=== PATIENT | male | born 1975 | race Caucasian/White ===

== ENCOUNTER 2018-05-17 05:45 | Day surgery (SDC) | payer OTHER ==
[2018-05-12 11:08] LABS: Protime INR 1.03
--- NOTE | 2018-05-12 13:43 | EKG ---
Test Date: 2018-05-12 Test Time: 09:37:43 Lokie Engineer: VALARIE MEASUREMENT RESULTS: Intervals: Rate: 59 WI: 150 QRSD: 100 QT: 412 QTc: 407 [place]: P: 42 WI: 150 QRS: 54 T: 47 INTERPRETIVE STATEMENTS: Sinus bradycardia Otherwise normal ECG No previous ECG available for comparison Electronically Signed On 05-12-18 13:42:32 CDT by Russ White
[2018-05-17] MEDS ORDERED: CEFAZOLIN/SWI 2gm 2 GM/20 ML SYR IV SCH (06:00)
--- OUTSIDE RECORDS SUMMARY | 2018-05-17 06:46 | XMS REPORT ---
:1975 Author Organization eClinicalWorks Care Team Providers Name Role Phone Khoa Sellers Provider Role Unavailable Allergies No Known Allergies Problems Problem Type Condition Code Onset Dates Condition Status Problem Incomplete tear of right rotator M75.111 Active cuff Medications Medication Code System Code Instructions Start End Date Status Dosage Date [facility] 89999981295 7.5-325 MG Orally May 12, Active 1 tablet every 6 hrs 2018 as needed Results No Known Results Summary Purpose eClinicalWorks Submission
--- OUTSIDE RECORDS SUMMARY | 2018-05-17 06:46 | XMS REPORT ---
:1975 Author Organization eClinicalWorks Care Team Providers Name Role Phone Khoa Sellers Provider Role Unavailable Allergies No Known Allergies Problems Problem Type Condition Code Onset Dates Condition Status Problem Incomplete tear of right rotator M75.111 Active cuff Medications No Known Medications Results No Known Results Summary Purpose eClinicalWorks Submission
--- OUTSIDE RECORDS SUMMARY | 2018-05-17 06:46 | XMS REPORT ---
:1975 Author Organization eClinicalWorks Care Team Providers Name Role Phone Sellers Khoa Provider Role Unavailable Allergies, Adverse Reactions, Alerts Substance Reaction Event Type N.K.D.A. Info Not Available Non Drug Allergy Problems Problem Type Condition Code Onset Dates Condition Status Assessment Acute pain of right shoulder M25.511 Active Problem Incomplete tear of right rotator M75.111 Active cuff Assessment Bicipital tendinitis of right M75.21 Active shoulder Assessment Superior glenoid labrum lesion of S43.431A Active right shoulder, initial encounter Assessment Impingement syndrome of right M75.41 Active shoulder Assessment Incomplete tear of right rotator M75.111 Active cuff Medications Medication Code Code Instructions Start End Status Dosage System Date Date Ibuprofen [facility] 39484943698 800 MG Oral Active not defined Vitamin D [facility] [id number] 90099 UNIT Active not (Ergocalciferol) Oral defined Hydrochlorothiazide [facility] 13326661625 12.5 MG Oral Active not defined Losartan Potassium [facility] 62291240087 100 MG Oral Active not defined Results No Known Results Summary Purpose eClinicalWorks Submission
[2018-05-17] MEDS ORDERED: Ringers Lactate 1,000 ML IV ONE ×2 (06:51→08:36)
[2018-05-17] MEDS ORDERED: MIDAZOLAM HCL 2 MG/2 ML INJ ONE ×2 (07:05→07:09)
[2018-05-17] MEDS ORDERED: PROPOFOL 200 MG/20 ML VIAL IV ONE (07:05)
[2018-05-17] MEDS ORDERED: FENTANYL CITR 250 MCG/5 ML ONE ×2 (07:06→07:09)
[2018-05-17] MEDS ORDERED: ROCURONIUM 50 MG/5 ML VIAL IV ONE (07:06)
[2018-05-17] MEDS ORDERED: LIDOCAINE 1% MPF 5 ML VIAL ONE (07:06)
[2018-05-17] MEDS ORDERED: DEXAMETHASONE 4 MG/ML VIAL ONE (07:09)
[2018-05-17] MEDS ORDERED: ROPLVACAINE HCL 20 ML ONE (07:10)
[2018-05-17] MEDS ORDERED: EPINEPHRINE/PF 1 MG/ML AMP ONE (07:22)
[2018-05-17] MEDS ORDERED: EPHEDRINE SULF 50 MG/10 ML SYR ONE (08:04)
[2018-05-17] MEDS ORDERED: KETOROLAC 30 MG/ML INJ ONE (09:03)
--- NOTE | 2018-05-17 09:31 | P.BOP ---
Preoperative diagnosis: right shoulder rotator cuff tear, bicipital tenosynovitis Postoperative diagnosis: right shoulder rotator cuff tear, SLAP tear Primary procedure: right shoulder arthroscopic rotator cuff repair Secondary procedure: right shoulder SLAP debridement Multiple Needle Stitcher: NONE,NONE Estimated blood loss: <10 cc Specimen: none Findings: see dictation Anesthesia: General Complications: None Implants: Fiber tape, 4.75 x 19 mm Swivelock Fluids & blood products: per anesthesia Transferred to: Recovery Room Condition: Good
[2018-05-17] MEDS ORDERED: HYDROCODONE/APAP 7.5/325 MG TAB ONE (10:28)
--- NOTE | 2018-05-17 10:28 | RAD REPORT ---
EXAM DESCRIPTION: RAD - Shoulder 1 View - 05/17/2018 9:41 am CLINICAL HISTORY: Right shoulder surgery FINDINGS: Frontal view of the right shoulder was obtained. No fracture or dislocation is seen. No si gnificant abnormality is displayed
--- NOTE | 2018-05-17 22:03 | OP ---
Date of Procedure: 05/17/2018 Surgeon: Khoa Sellers MD Preoperative Diagnoses: 1. Right shoulder rotator cuff tear. 2. Right shoulder bicipital tenosynovitis. Postoperative Diagnoses: 1. Right shoulder rotator cuff tear. 2. Right shoulder type 1 superior labrum anterior and posterior tear. Procedures Performed: 1. Right shoulder arthroscopic rotator cuff repair. 2. Right shoulder arthroscopic superior labrum anterior and posterior tear debridement. Anesthesia: General endotracheal. Fluids: Per Anesthesia record. Estimated Blood Loss: Less than 10 cc. Complications: None. Specimens: None. Implants: A FiberTape and 4.75 x 19 mm Arthrex SwiveLock. Indication For Procedure: Jerome is a 42-year-old male who presented to my clinic with right shoulder pain. The patient failed conservative treatment including corticosteroid injection and physical therapy. The patient underwent an MRI of his right shoulder, which demonstrated a full-thickness tear of his anterior supraspinatus. I discussed with the patient at length risks and benefits associated with operative and nonoperative treatment. He expressed understanding and elected to proceed with operative treatment. Description Of Procedure: After informed consent was obtained, the patient was identified in the preoperative holding area. The right upper extremity was marked. The patient was taken to the PACU and underwent an interscalene block for his right shoulder performed by Anesthesia. He was then taken back to the operating room, transferred to the operating table in supine fashion, and placed under general endotracheal anesthesia. He was then placed in the beach chair position with his extremities well-padded. The right upper extremity was then examined. The patient had full range of motion of the shoulder and no instability noted. The right upper extremity was then prepped and draped in usual sterile fashion. A time-out was initiated. Correct patient and procedure were confirmed and identified. The patient did receive his preoperative prophylactic antibiotics. He had a posterior portal position, and spinal needle was introduced, and the shoulder was injected with 30 cc of saline inside the capsule. A posterior portal was created and arthroscope was introduced to the posterior portal position. A diagnostic arthroscopy was performed. The patient was noted to have some fraying of the superior labrum consistent with a type 1 SLAP tear. There was no instability of the superior labrum and no significant inflammation or fraying of the biceps tendon anchor and at that point an anterior portal was created and the superior labrum was probed again to confirm it was in fact stable. SLAP tear was then debrided using an arthroscopic shaver. The subscapularis was found to be intact. The anterior and posterior labrum were also found to be intact. No loose bodies within the axillary pouch. There was mild chondromalacia of the glenoid surface but overall pristine cartilage of the humeral head. Supraspinatus was then evaluated. There was inflammation and a small tear noted in the inferior aspect of supraspinatus and the articular surface. The arthroscope was then brought into the subacromial space. Subacromial bursectomy was then performed, after a lateral portal was created. The supraspinatus was then evaluated from its bursal side and a full-thickness tear was noted inferiorly. The obturator was brought in the lateral portal to elevate the supraspinatus off the greater tuberosity. There was some hyperemia within the tendon insertion anteriorly. The arthroscopic shaver was then used to debride any devitalized tissue and the greater tuberosity was debrided using an arthroscopic shaver, debrided to bleeding bony bed. An inverted suture was placed using a scorpion FastPass suture passer and a FiberTape attached to the rotator cuff tear. It was then reduced to the greater tuberosity with reduction of the rotator cuff tear. A single anchor was used for reduction of the tear after the greater tuberosity. Using a 4.75 mm SwiveLock, the remainder of the suture edges were cut with good reduction of the tear on the greater tuberosity. The instruments were then removed. The arthroscope was brought back into the glenohumeral joint and it was noted that there was good reduction of the rotator cuff tear. It is under the near articular side. The portals were approximated using a 3-0 Monocryl, subcutaneous tissue was approximated using 2-0 Vicryl. Sterile dressings were applied. The patient was awakened, placed in a shoulder immobilizer, transferred to PACU in stable condition. Postoperative Plan: He will be nonweightbearing of his right upper extremity. He will follow up next week for wound check. He will follow the small rotator cuff repair protocol to begin at 2 weeks postoperatively. GEMA/SARAH Voice ID: [id number] Report ID: [id number] RAFITA
== END 2018-05-17 11:05 | disposition home or self-care (01) ==
LOC: OR 05:45
PROVIDERS: ATTEND Orthopaedic Surgery Sports Medicine
PROC: 0RNJ4ZZ Release Right Shoulder Joint, Percutaneous Endoscopic Approach (ICD-10-PCS; 2018-05-17)
PROC: 0MM14ZZ Reattachment of Right Shoulder Bursa and Ligament, Percutaneous Endoscopic Approach (ICD-10-PCS; 2018-05-17)
PROC: 0RBJ4ZZ Excision of Right Shoulder Joint, Percutaneous Endoscopic Approach (ICD-10-PCS; 2018-05-17)
PROC: 0LQ14ZZ Repair Right Shoulder Tendon, Percutaneous Endoscopic Approach (ICD-10-PCS; principal; 2018-05-17 07:30)
DX: M75.101 Unspecified rotator cuff tear or rupture of right shoulder, not specified as traumatic (principal); M24.111 Other articular cartilage disorders, right shoulder
CPT/HCPCS: 36415; 73020; 85610; 85730; 93005; J0171; J0690; J2250; J2795

== ENCOUNTER 2021-04-25 09:08 | Emergency (ER) | payer SELFPAY ==
--- OUTSIDE RECORDS SUMMARY | 2021-04-25 09:11 | XMS REPORT | Continuity of Care Document ---
:1975 Author Organization [facility] t Address [address] [place] [address] Care Team Providers Name Role Phone Steve SANTOS Attending Clinician Problems Condition Condition Condition Status Onset Resolution Last Treating Co mments Source Name Details Category Date Date Treatment Clinician Date Incomplete Incomplete Problem Active [facility] - right right [facility] rotator rotator l cuff cuff Outpat[facility] ent Clinics Complete Complete Diagnosis Active [facility] - right right [facility] rotator rotator l cuff cuff Outpat[facility] ent [facility] Superior Superior Diagnosis Active [facility] glenoid glenoid [facility] - labrum labrum [facility] lesion of lesion of l right right Outpati shoulder, shoulder, ent initial initial Clinics encounter encounter Pain in Pain in Diagnosis Active [facility] - right right [facility] shoulder shoulder l Out[facility] ent Clinics Allergies, Adverse Reactions, Alerts This patient has no known allergies or adverse reactions. Medications Ordered Filled Start Stop Current Ordering Indication Dosage Frequency Signature Comments Components Source Medication Medication Date Date Medication? Clinician (SIG) Name Name Destiney Velizco 2018-0 Yes Khoa [address] [facility] 8-10 Sellers as needed [facility] Ibuprofen Ibuprofen Yes Khoa not [facility] Sellers defined [facility] Hydrochloro Hydrochloro Yes Khoa not [facility] thiazide thiazide [facility]ellers defined [facility] Vitamin D Vitamin D Yes Khoa not [facility] (Ergocalcif (Ergocalcif Sellers defined [facility] - [facility] j[facility] Losartan Losartan Yes Khoa not [facility] Potassium Potassium Sellers defined Kerry kes - [facility] Procedures This patient has no known procedures. Encounters Start End Encounter Admission Attending Care Care Encounter Source Date/Time Date/Time Type Type Clinicians Facility Department ID 2020-06-22 2020-06-22 Emergency Wilson, [facility] [id number] 15:41:00 20:30:00 Crystal Garcia [id number] [place] [id number] [place] [id number] 2018-07-06 2018-07-06 [facility] [id number] [facility] 08[facility]00 08:[facility] 2018-06-06 2018-06-06 [facility] [id number] [facility] 14:[facility]00 14:00[facility]00 [facility] 2018-05-22 2018-05-22 [facility] [id number] [facility] 09:45:00 09:45:00 [facility] 2018-05-12 2018-05-12 [facility] [id number] [facility] 09:16:00 09:16:00 [facility] 2018-05-09 2018-05-09 [facility] [id number] [facility] 13:21:00 13:21:00 t [facility] 2018-05-08 2018-05-08 [facility] [id number] [facility] 09[facility]30:00 09:30:00 [facility] Results This patient has no known results.
[2021-04-25 11:19] LABS: Absolute Lymphocytes (CBC) 1.3 K/uL (0.7-4.9); Basophils % 0.5 % (0-1.3); Hematocrit 46.4 % (39.6-49.0); Lymphocytes % 9.5 % (15.3-44.8); MPV 9.1 fL (7.6-11.3); RBC Red Blood Cell Count 4.87 M/uL (4.33-5.43)
[2021-04-25 11:29] LABS: Albumin 3.8 g/dL (3.4-5.0); Bilirubin Total 0.5 mg/dL (0.2-1.0); Potassium 3.9 mmol/L (3.5-5.1)
--- NOTE | 2021-04-25 12:04 | RAD REPORT ---
EXAM DESCRIPTION: CT - Abdomen Pelvis W Contrast - 04/25/2021 11:47 am CLINICAL HISTORY: Abdominal pain/flank pain COMPARISON: none. TECHNIQUE: Computed axial tomography of the abdomen pelvis was obtained. 100 cc Isovue-300 was admin istered intravenously. Oral contrast was not requested which limits evaluation of bowel. All CT scans are performed using dose optimization technique as appropriate and may include automated exposure control or mA/KV adjustment according to patient size. FINDINGS: A gastric band has been placed. Mild delay concentration contrast within the left kidney with perirenal stranding. Mild left hydronep hrosis. 4.5 millimeter calculus mid left ureter. The liver, spleen, pancreas, adrenal and right kidney appear unremarkable. There is no evidence of diverticulitis. Normal appendix. Small inguinal hernias contain fat IMPRESSION: 4.5 millimeter calculus mid left ureter resulting in mild left hydronephrosis
--- NOTE | 2021-04-25 12:09 | RAD REPORT ---
EXAM DESCRIPTION: US - Scrotum Testicles - 04/25/2021 11:40 am CLINICAL HISTORY: Testicular pain COMPARISON: None FINDINGS: Right testicle measures 4.1 x 2.3 x 3.7 centimeters. Echotexture is homogeneous. Normal bl ood flow Left testicle measures 5.2 x 2.5 x 3.5 centimeters. Echotexture is homogeneous. Normal blood flow. A 3 millimeter calcification either is within the periphery or abuts the left testicle. It likely is be nign The epididymides are normal in size and echotexture. Normal blood flow is seen. IMPRESSION: No significant abnormality is displayed
[2021-04-25 12:16] LABS: Urine Blood 3+ (Negative); Urine Glucose Negative (Negative); Urine Protein Negative (Negative); Urine Specific Gravity 1.015 (1.005-1.030)
[2021-04-25 12:18] LABS: Blood Morphology Comment NOT SEEN (NOT SEEN); Platelet Estimate ADEQ; White Blood Cell Scan OK (OK)
--- NOTE | 2021-04-25 12:33 | ER ---
Nurse's Notes [facility] Name: Jerome Lora Age: 45 yrs Sex: Male : 1975 Arrival Date: 04/25/2021 Time: 09:10 Bed 28 Private MD: Diagnosis: Hydronephrosis with renal and ureteral calculous obstruction-4.5 mm left mid Presentation: 04/25 09:54 Chief complaint: Patient states: two week ago had swollen left testicle, was seen by urologist and started abx for epididymitis, this morning and it swollen doubled in size. Coronavirus screen: At this time, the client does not indicate any symptoms associated with coronavirus-19. Ebola Screen: Patient negative for fever greater than or equal to 101.5 degrees Fahrenheit, and additional compatible Ebola Virus Disease symptoms Patient denies exposure to infectious person. Patient denies travel to an Ebola-affected area in the 21 days before illness onset. No symptoms or risks identified at this time. Initial Sepsis Screen: Does the patient meet any 2 criteria? No. Patient's initial sepsis screen is negative. Does the patient have a suspected source of infection? No. Patient's initial sepsis screen is negative. Risk Assessment: Do you want to hurt yourself or someone else? Patient reports no desire to harm self or others. Onset of symptoms was April 25, 2021. 09:54 Method Of Arrival: Ambulatory 09:54 Acuity: KIMBERLEY 2 Triage Assessment: 10:00 General: Appears distressed, uncomfortable, obese, Behavior is cooperative, appropriate bp for age, anxious. Pain: Complains of pain in left testicle. EENT: No deficits noted. Neuro: No deficits noted. Cardiovascular: No deficits noted. Respiratory: No deficits noted. GI: No signs and/or symptoms were reported involving the gastrointestinal system. : Swelling noted LEFT TESTICLE. Derm: No deficits noted. Musculoskeletal: No deficits noted. Historical: - Allergies: :56 No Known Allergies; iw - Home Meds: :56 losartan oral [Active]; atorvastatin oral [Active]; iw - PMHx: 09:56 Hypertensive disorder; hyperlipidemia; iw - PSHx: 09:56 shoulder; iw - Immunization history:: Client reports having NOT received the Covid vaccine. - Social history:: Smoking status: Patient reports the use of cigarette tobacco products. Screenin:00 Abuse screen: Denies threats or abuse. Denies injuries from another. Nutritional bp screening: No deficits noted. Tuberculosis screening: No symptoms or risk factors identified. Fall Risk None identified. Assessment: 10:00 Reassessment: LEFT TESTICLE PAIN. General: SEE TRIAGE NOTE. Neuro: Level of bp Consciousness is awake, alert, obeys commands, Oriented to Appropriate for age. Cardiovascular: No deficits noted. Respiratory: No deficits noted. GI: No deficits noted. : Reports pain testicle. EENT: No deficits noted. Derm: No deficits noted. Musculoskeletal: No deficits noted. 12:00 Reassessment: No changes from previously documented assessment. Patient and/or family bp updated on plan of care and expected duration. Pain level reassessed. Patient is alert, oriented x 3, equal unlabored respirations, skin warm/dry/pink. ALL CURRENT ORDERS CMPLETED. 12:51 Reassessment: PT D/C HOME AMBULATORY, DX WITH RENAL CALCULUS. bp Vital Signs: 09:54 BP 162 / 92; Pulse 74; Resp 16; Temp 98.6; Pulse Ox 100% on R/A; Weight 113.4 kg; iw Height 5 ft. 11 in. (180.34 cm); Pain 10/10; 12:00 BP 139 / 74; Pulse 60; Resp 17; Pulse Ox 98% ; bp 12:48 BP 129 / 86; Pulse 63; Resp 17; Pulse Ox 99% ; bp 09:54 Body Mass Index 34.87 (113.40 kg, 180.34 cm) iw ED Course: 09:10 Patient arrived in ED. cl3 09:56 Triage completed. iw 09:57 Arm band placed on. iw 10:04 Lambert Lagos MD is Attending Physician. carlos 10:16 Nj Nixon, RN is Primary Nurse. bp 11:00 Patient has correct armband on for positive identification. Bed in low position. Call bp light in reach. Side rails up X2. 11:00 US Scrotum Testicles Sent. bp 11:00 Inserted saline lock: 20 gauge in left antecubital area, using aseptic technique. Blood bp collected. 11:22 US Scrotum Testicles In Process Unspecified. EDMS 11:47 CT Abd/Pelvis - IV Contrast Only In Process Unspecified. EDMS 12:31 Corwin Calvert MD is Referral Physician. carlos 12:54 No provider procedures requiring assistance completed. IV discontinued, intact, iw bleeding controlled, No redness/swelling at site. Pressure dressing applied. Administered Medications: 11:00 Drug: NS 0.9% 1000 ml Route: IV; Rate: 1 bolus; Site: left antecubital; bp 11:00 Drug: Rocephin (cefTRIAXone) 1 grams Route: IV; Rate: per protocol; Site: left bp antecubital; 11:00 Drug: morphine 4 mg Route: IVP; Site: left antecubital; bp 12:27 Follow up: Response: Pain is decreased bp 11:00 Drug: Zofran (Ondansetron) 4 mg Route: IVP; Site: left antecubital; bp 12:26 Follow up: Response: Pain is decreased bp 12:49 Drug: Ketorolac 30 mg Route: IVP; Site: left antecubital; bp 12:50 Follow up: Response: No adverse reaction; Pain is decreased bp 12:50 Drug: Flomax (tamsulosin) 0.4 mg Route: PO; bp 12:50 Follow up: Response: Medication administered at discharge. bp Outcome: 12:32 Discharge ordered by . carlos 12:54 Discharged to home ambulatory. iw 12:54 Condition: good 12:54 Discharge instructions given to patient, Instructed on discharge instructions, follow up and referral plans. medication usage, Demonstrated understanding of instructions, follow-up care, medications, Prescriptions given X 4. 12:54 Patient left the ED. iw Signatures: Dispatcher [employer] EDME Lambert Lagos MD MD cha Williams, Irene, RN RN Nj Worrell RN RN bp Lewis, Charde cl3
--- NOTE | 2021-04-25 12:33 | EDPHYS ---
Physician Documentation [facility] Name: Jerome Lora Age: 45 yrs Sex: Male : 1975 Arrival Date: 04/25/2021 Time: 09:10 Bed 28 Private MD: ED Physician Lambert Lagos HPI: 04/25 11:28 This 45 yrs old Male presents to ER via Ambulatory with complaints of carlos Testicular Pain. 11:28 The patient presents with flank pain, of the left low back and left mid back, carlos tenderness, that is moderate, of the left testicle. Onset: The symptoms/episode began/occurred 14 day(s) ago. Modifying factors: The symptoms are alleviated by remaining still, the symptoms are aggravated by movement, pressure. Associated signs and symptoms: The patient has no apparent associated signs or symptoms. Severity of symptoms: At their worst the symptoms were moderate, in the emergency department the symptoms are unchanged. The patient has not experienced similar symptoms in the past. Historical: - Allergies: 09:56 No Known Allergies; iw - Home Meds: :56 losartan oral [Active]; atorvastatin oral [Active]; iw - PMHx: 09:56 Hypertensive disorder; hyperlipidemia; iw - PSHx: 09:56 shoulder; iw - Immunization history:: Client reports having NOT received the Covid vaccine. - Social history:: Smoking status: Patient reports the use of cigarette tobacco products. ROS: 11:29 Constitutional: Negative for fever, chills, and weight loss, Eyes: Negative for injury, carlos pain, redness, and discharge, ENT: Negative for injury, pain, and discharge, Neck: Negative for injury, pain, and swelling, Cardiovascular: Negative for chest pain, palpitations, and edema, Respiratory: Negative for shortness of breath, cough, wheezing, and pleuritic chest pain, Abdomen/GI: Negative for abdominal pain, nausea, vomiting, diarrhea, and constipation, Back: Negative for injury and pain, MS/Extremity: Negative for injury and deformity, Skin: Negative for injury, rash, and discoloration, Neuro: Negative for headache, weakness, numbness, tingling, and seizure, Psych: Negative for depression, anxiety, suicide ideation, homicidal ideation, and hallucinations, Allergy/Immunology: Negative for hives, rash, and allergies, Endocrine: Negative for neck swelling, polydipsia, polyuria, polyphagia, and marked weight changes, Hematologic/Lymphatic: Negative for swollen nodes, abnormal bleeding, and unusual bruising. 11:29 : Positive for testicular pain of the left testicle. Exam: 11:29 Constitutional: This is a well developed, well nourished patient who is awake, alert, carlos and in no acute distress. Head/Face: Normocephalic, atraumatic. Eyes: Pupils equal round and reactive to light, extra-ocular motions intact. Lids and lashes normal. Conjunctiva and sclera are non-icteric and not injected. Cornea within normal limits. Periorbital areas with no swelling, redness, or edema. ENT: Nares patent. No nasal discharge, no septal abnormalities noted. Tympanic membranes are normal and external auditory canals are clear. Oropharynx with no redness, swelling, or masses, exudates, or evidence of obstruction, uvula midline. Mucous membranes moist. Neck: Trachea midline, no thyromegaly or masses palpated, and no cervical lymphadenopathy. Supple, full range of motion without nuchal rigidity, or vertebral point tenderness. No Meningismus. Chest/axilla: Normal chest wall appearance and motion. Nontender with no deformity. No lesions are appreciated. Cardiovascular: Regular rate and rhythm with a normal S1 and S2. No gallops, murmurs, or rubs. Normal PMI, no JVD. No pulse deficits. Respiratory: Lungs have equal breath sounds bilaterally, clear to auscultation and percussion. No rales, rhonchi or wheezes noted. No increased work of breathing, no retractions or nasal flaring. Abdomen/GI: Soft, non-tender, with normal bowel sounds. No distension or tympany. No guarding or rebound. No evidence of tenderness throughout. Back: No spinal tenderness. No costovertebral tenderness. Full range of motion. Skin: Warm, dry with normal turgor. Normal color with no rashes, no lesions, and no evidence of cellulitis. MS/ Extremity: Pulses equal, no cyanosis. Neurovascular intact. Full, normal range of motion. Neuro: Awake and alert, GCS 15, oriented to person, place, time, and situation. Cranial nerves II-XII grossly intact. Motor strength 5/5 in all extremities. Sensory grossly intact. Cerebellar exam normal. Normal gait. Psych: Awake, alert, with orientation to person, place and time. Behavior, mood, and affect are within normal limits. 11:29 : CVA tenderness, on the left, Male external genitalia: normal, Bladder: is normal, Rectal exam: is not applicable, Sexual behavior: the patient is sexually active, and reports a single partner. Vital Signs: 09:54 BP 162 / 92; Pulse 74; Resp 16; Temp 98.6; Pulse Ox 100% on R/A; Weight 113.4 kg; iw Height 5 ft. 11 in. (180.34 cm); Pain 10/10; 12:00 BP 139 / 74; Pulse 60; Resp 17; Pulse Ox 98% ; bp 12:48 BP 129 / 86; Pulse 63; Resp 17; Pulse Ox 99% ; bp 09:54 Body Mass Index 34.87 (113.40 kg, 180.34 cm) iw MDM: 10:06 Patient medically screened. [facility] 11:30 Differential diagnosis: nephrolithiasis, pyelonephritis, UTI, nonspecific abdominal carlos pain, UTI, urinary retention, urethritis. Data reviewed: vital signs, nurses notes, lab test result(s), radiologic studies, CT scan, ultrasound. Data interpreted: bus driver/monitor: not applicable for this patient encounter. rate is 74 beats/min, rhythm is regular, Pulse oximetry: on room air is 100 %. Test interpretation: by ED physician or midlevel provider:. Counseling: I had a detailed discussion with the patient and/or guardian regarding: the historical points, exam findings, and any diagnostic results supporting the discharge/admit diagnosis, lab results, radiology results. 04/25 10:06 Order name: CBC with Diff; Complete Time: 12:30 [facility] 04/25 10:06 Order name: Comprehensive Metabolic Panel; Complete Time: 12:30 [facility] 04/25 10:06 Order name: US Scrotum Testicles; Complete Time: 12:30 [facility] 04/25 10:06 Order name: Urine Culture [facility] 04/25 12:16 Order name: Urine Dipstick-Ancillary; Complete Time: 12:30 [facility] 04/25 12:17 Order name: CBC Smear Scan; Complete Time: 12:30 [facility] 04/25 10:06 Order name: Urine Dipstick-Ancillary (obtain specimen); Complete Time: 12:27 [facility] 04/25 11:28 Order name: CT Abd/Pelvis - IV Contrast Only; Complete Time: 12:30 carlos Administered Medications: 11:00 Drug: NS 0.9% 1000 ml Route: IV; Rate: 1 bolus; Site: left antecubital; bp 11:00 Drug: Rocephin (cefTRIAXone) 1 grams Route: IV; Rate: per protocol; Site: left bp antecubital; 11:00 Drug: morphine 4 mg Route: IVP; Site: left antecubital; bp 12:27 Follow up: Response: Pain is decreased bp 11:00 Drug: Zofran (Ondansetron) 4 mg Route: IVP; Site: left antecubital; bp 12:26 Follow up: Response: Pain is decreased bp 12:49 Drug: Ketorolac 30 mg Route: IVP; Site: left antecubital; bp 12:50 Follow up: Response: No adverse reaction; Pain is decreased bp 12:50 Drug: Flomax (tamsulosin) 0.4 mg Route: PO; bp 12:50 Follow up: Response: Medication administered at discharge. bp Disposition Summary: 04/25/21 12:32 Discharge Ordered Location: Home carlos Problem: new carlos Symptoms: have improved carlos Condition: Stable carlos Diagnosis - Hydronephrosis with renal and ureteral calculous obstruction - 4.5 mm left mid carlos Followup: carlos - With: Private Physician - When: 2 - 3 days - Reason: Recheck today's complaints, Continuance of care, Re-evaluation by your physician Followup: carlos - With: Corwin Calvert MD - When: 2 - 3 days - Reason: Recheck today's complaints, Re-evaluation by your physician Discharge Instructions: - Discharge Summary Sheet carlos - Kidney Stones carlos - Kidney Stones, [id number] carlos - Hydronephrosis carlos - Dietary Guidelines to Help Prevent Kidney Stones carlos Forms: - Medication Reconciliation Form carlos - Thank You Letter carlos - Antibiotic Education carlos - Prescription Opioid Use carlos Prescriptions: - acetaminophen-codeine 300-15 mg Oral tablet - take 2 tablet by ORAL route every 4-6 hours; 25 tablet; Refills: 0, Product carlos Selection Permitted - Zofran 4 mg Oral Tablet - take 1 tablet by ORAL route every 12 hours As needed; 20 tablet; Refills: 0, carlos Product Selection Permitted - Cipro 500 mg Oral Tablet - take 1 tablet by ORAL route every 12 hours for 7 days; 14 tablet; Refills: 0, [facility] Product Selection Permitted - tamsulosin 0.4 mg Oral capsule - take 1 capsule by ORAL route once daily 1/2 hour following the same meal each [facility] day; 30 capsule; Refills: 0, Product Selection Permitted Signatures: Dispatcher [employer] Lambert Zepeda MD MD cha Williams, Irene, JOANN RN Nj Worrell RN RN bp
[2021-04-25 13:02] VITALS: TEMP 98.6
[2021-04-25 13:05] VITALS: BP 129/86; O2SAT 99
[2021-04-25] MEDS ORDERED: TAMSULOSIN 0.4 MG SR CAP ONE (13:07)
[2021-04-25] MEDS ORDERED: KETOROLAC 30 MG/ML INJ ONE (13:07)
== END 2021-04-25 12:54 | disposition home or self-care (01) ==
LOC: ER 09:08
DX: N13.2 Hydronephrosis with renal and ureteral calculous obstruction (principal); I10 Essential (primary) hypertension; E78.5 Hyperlipidemia, unspecified; F17.210 Nicotine dependence, cigarettes, uncomplicated
CPT/HCPCS: 36415; 74177; 76870; 80053; 81003; 85025; 87086; 87088; 96374; 96375; 99284; Q9967

== ENCOUNTER 2021-08-09 11:28 | Emergency (ER) | payer OTHER ==
[2021-08-09 12:21] LABS: Absolute Lymphocytes (CBC) 1.4 K/uL (0.7-4.9); Basophils % 0.5 % (0-1.3); Hematocrit 54.9 % (39.6-49.0); Lymphocytes % 12.8 % (15.3-44.8); MPV 8.5 fL (7.6-11.3); RBC Red Blood Cell Count 5.62 M/uL (4.33-5.43)
--- NOTE | 2021-08-09 12:31 | RAD REPORT ---
EXAM DESCRIPTION: CT - Head Brain Wo Cont - 08/09/2021 12:08 pm CLINICAL HISTORY: Dizziness COMPARISON: None TECHNIQUE: Computed axial tomography of the head was obtained. IV contrast was not requested. All CT scans are performed using dose optimization technique as appropriate and may include automated exposure control or mA/KV adjustment according to patient size. FINDINGS: An intracranial bleed is not seen . The ventricles are normal in caliber. No extra-axial fluid collection is noted. Fluid within the sinuses/ mastoids is not seen. IMPRESSION: No acute intracranial abnormality is seen. If patient's symptoms persist MRI of the bra in would be recommended.
[2021-08-09 12:40] LABS: ALT/SGPT 38 U/L (12-78); AST/SGOT 25 U/L (15-37); Albumin 3.5 g/dL (3.4-5.0); Alkaline Phosphatase 74 U/L (45-117); BUN Blood Urea Nitrogen 4 mg/dL (7-18); Bicarbonate 25 mmol/L (21-32); Bilirubin Direct 0.3 mg/dL (0-0.2); Glucose Level 103 mg/dL (74-106); Magnesium 1.8 mg/dL (1.8-2.4); NT PRO-BNP 34 pg/mL (<125); Potassium 3.8 mmol/L (3.5-5.1); Protein, Total 7.1 g/dL (6.4-8.2); Sodium Level 139 mmol/L (136-145); Troponin (Emerg Dept Use Only) < 0.02 ng/mL (0.0-0.045)
--- NOTE | 2021-08-09 13:03 | RAD REPORT ---
EXAM DESCRIPTION: Arti Single View08/09/2021 12:34 pm CLINICAL HISTORY: Chest pain COMPARISON: 2011 FINDINGS: The lungs appear clear of acute infiltrate. The heart is normal size IMPRESSION: No acute abnormalities displayed
--- NOTE | 2021-08-09 16:12 | ER ---
Nurse's Notes [facility] Name: Jerome Lora Age: 46 yrs Sex: Male : 1975 Arrival Date: 08/09/2021 Time: 11:32 Bed 16 Private MD: Diagnosis: Chest pain, unspecified;Dizziness and giddiness Presentation: 08/09 11:37 Chief complaint: Patient states: i got up this morning and i was super dizzy and my tw2 LEFT arm has been tingling. i checked my bp at home and it was like 168/102. i had a mild stroke last September. i do take losartan 100 mg and i have been taking it. Coronavirus screen: At this time, the client does not indicate any symptoms associated with coronavirus-19. Ebola Screen: Patient denies travel to an Ebola-affected area in the 21 days before illness onset. Initial Sepsis Screen: Does the patient meet any 2 criteria? No. Patient's initial sepsis screen is negative. Does the patient have a suspected source of infection? No. Patient's initial sepsis screen is negative. Risk Assessment: Do you want to hurt yourself or someone else? Patient reports no desire to harm self or others. Onset of symptoms was August 09, 2021. 11:37 Method Of Arrival: Ambulatory tw2 11:37 Acuity: KIMBERLEY 3 tw2 Triage Assessment: 11:39 General: Appears in no apparent distress. well groomed, Behavior is calm, cooperative, tw2 appropriate for age. Pain: Denies pain. Neuro: Level of Consciousness is awake, alert, obeys commands, Oriented to person, place, time, situation, Reports dizziness, headache "heaviness in my LEFT arm when i woke up this morning". 11:45 General: Appears in no apparent distress. well groomed, well developed, Behavior is sl2 calm, cooperative, appropriate for age, Reports Left arm tingling. 11:45 EENT: No deficits noted. No signs and/or symptoms were reported regarding the EENT sl2 system. Cardiovascular: No deficits noted. Respiratory: No deficits noted. Reports. GI: No deficits noted. No signs and/or symptoms were reported involving the gastrointestinal system. : No deficits noted. No signs and/or symptoms were reported regarding the genitourinary system. Derm: No deficits noted. No signs and/or symptoms reported regarding the dermatologic system. Musculoskeletal: No deficits noted. No signs and/or symptoms reported regarding the musculoskeletal system. Historical: - Allergies: 11:39 No Known Allergies; tw2 - Home Meds: 11:39 losartan 100 mg oral tab 1 tab once daily [Active]; atorvastatin Oral 1 tab once daily tw2 [Active]; - PMHx: 11:39 Hyperlipidemia; Hypertensive disorder; CVA; tw2 - PSHx: 11:39 Shoulder; tw2 - Immunization history:: Client reports having NOT received the Covid vaccine. - Social history:: Smoking status: Patient reports the use of cigarette tobacco products, denies chronic smoking, but will smoke occasionally, Patient uses alcohol, occasionally. Screenin:44 Abuse screen: Denies threats or abuse. Nutritional screening: No deficits noted. tw2 Tuberculosis screening: No symptoms or risk factors identified. Fall Risk None identified. Assessment: 11:46 Reassessment: Patient AAO X 3, presents to ED with c/o dizziness and left arm tingling sl2 onset this am, denies chest pain or other untoward symptoms. 11:46 General: Appears in no apparent distress. well groomed, well developed, Behavior is sl2 calm, cooperative, appropriate for age, Reports Dizziness and left arm tingling Denies fever, fatigue. Pain: Denies pain. Neuro: Reports dizziness, Left arm tingling . Denies weakness blurred vision difficulty swallowing, numbness headache photophobia diplopia. Cardiovascular: No deficits noted. Capillary refill Rhythm is sinus rhythm. Respiratory: No deficits noted. Airway is patent Trachea midline Respiratory effort is even, unlabored, Respiratory pattern is regular, symmetrical. GI: No deficits noted. No signs and/or symptoms were reported involving the gastrointestinal system. : No deficits noted. No signs and/or symptoms were reported regarding the genitourinary system. EENT: No deficits noted. No signs and/or symptoms were reported regarding the EENT system. Derm: No deficits noted. No signs and/or symptoms reported regarding the dermatologic system. Musculoskeletal: No deficits noted. No signs and/or symptoms reported regarding the musculoskeletal system. 12:04 Reassessment: Patient transported to radiology dept for CAT scan. sl2 12:10 Reassessment: CAT scan completed - patient has been returned to the unit. sl2 12:28 Reassessment: Portable CXR completed. sl2 Vital Signs: 11:37 BP 139 / 99; Pulse 86; Resp 17; Temp 98.2(TE); Pulse Ox 100% on R/A; Weight 111.13 kg tw2 (R); Height 5 ft. 11 in. (180.34 cm); Pain 0/10; 11:46 BP 138 / 92; Pulse 86; Resp 18; Temp 98.2; Pulse Ox 100% ; sl2 13:30 BP 135 / 88; Pulse 82; Resp 16; Temp 98.1(O); Pulse Ox 99% on R/A; sl2 14:24 BP 123 / 87; Pulse 77; Resp 18; Temp 98.2; Pulse Ox 97% on R/A; sl2 15:40 BP 139 / 91; Pulse 73; Resp 16; Pulse Ox 96% on R/A; mh5 16:00 BP 128 / 83; Pulse 78; Resp 18; Temp 98.4; Pulse Ox 100% on R/A; sl2 11:37 Body Mass Index 34.17 (111.13 kg, 180.34 cm) tw2 ED Course: 11:32 Patient arrived in ED. mr 11:39 Triage completed. tw2 11:39 Arm band placed on. tw2 11:40 Bed in low position. Call light in reach. tw2 11:40 Inserted saline lock: 20 gauge in left antecubital area, using aseptic technique. Blood kj1 collected. 11:40 Initial lab(s) drawn, by me, sent to lab. kj1 11:45 EKG done, by ED staff, reviewed by Marii Harvey MD. kj1 11:52 Marii Harvey MD is Attending Physician. sp3 11:55 La Nena Cronin, JOANN is Primary Nurse. sl2 12:[address] via wheelchair. sl2 12:08 CT Head Brain wo Cont In Process Unspecified. EDMS 12:10 Patient moved back from CT. sl2 12:34 XRAY Chest (1 view) In Process Unspecified. EDMS 15:32 Troponin (emerg Dept Use Only): Please draw 4 hours after first draw. Sent. mh5 15:35 Basic Metabolic Panel Sent. sl2 15:35 CBC with Diff Sent. sl2 16:19 No provider procedures requiring assistance completed. IV discontinued, intact, sl2 bleeding controlled, No redness/swelling at site. Pressure dressing applied. Administered Medications: No medications were administered Outcome: 16:12 Discharge ordered by . sp3 16:19 Discharged to home ambulatory. sl2 16:19 Condition: stable 16:19 Discharge instructions given to patient, Instructed on discharge instructions, follow up and referral plans. Demonstrated understanding of instructions, follow-up care. 16:20 Patient left the ED. sl2 Signatures: Dispatcher [employer] [facility] Mirian Ambrocio Liberty Garrido, RN RN tw2 Yvette Babb [facility] Corinne Diaz 1 Marii Harvey MD MD sp3 La Nena Cronin RN RN sl2 Corrections: (The following items were deleted from the chart) 11:44 11:37 BP 139 / 9; Pulse 86bpm; Resp 17bpm; Pulse Ox 100% RA; Temp 98.2F Temporal; tw2 111.13 kg Reported; Height 5 ft. 11 in.; BMI: 34.1; tw2 12:42 11:15 Inserted saline lock: 20 gauge in left antecubital area, using aseptic technique. kj1 Blood collected. kj1 12:42 11:15 Initial lab(s) drawn, by ED staff, sent to lab. kj1 kj1 12:42 12:41 Initial lab(s) drawn, by ma, sent to lab. kj1 kj1
--- NOTE | 2021-08-09 16:12 | EDPHYS ---
Physician Documentation [facility] Name: Jerome Lora Age: 46 yrs Sex: Male : 1975 Arrival Date: 08/09/2021 Time: 11:32 Bed 16 Private MD: ED Physician Marii Harvey HPI: 08/09 13:00 This 46 yrs old Male presents to ER via Ambulatory with complaints of High sp3 Blood Pressure, Dizziness, Numbness Of Arm. 13:00 86-year-old male with a history of hypertension, hyperlipidemia, prior kidney stones sp3 now presents with an approximate 5-hour history of dizziness, hypertension, generalized weakness. Patient said that he has "had a lot of stress due to some personal problems" lately and went to bed a bit more tired last night due to poor sleep patterns. This morning he woke up with high blood pressure and generalized weakness and some subjective dizziness while walking. He also stated he had some "left arm tingling" which is now completely resolved. Said tingling was early this morning and only lasted for a few minutes.. Historical: - Allergies: 11:39 No Known Allergies; tw2 - Home Meds: 11:39 losartan 100 mg oral tab 1 tab once daily [Active]; atorvastatin Oral 1 tab once daily tw2 [Active]; - PMHx: 11:39 Hyperlipidemia; Hypertensive disorder; CVA; tw2 - PSHx: 11:39 Shoulder; tw2 - Immunization history:: Client reports having NOT received the Covid vaccine. - Social history:: Smoking status: Patient reports the use of cigarette tobacco products, denies chronic smoking, but will smoke occasionally, Patient uses alcohol, occasionally. ROS: 13:10 Constitutional: Negative for fever, chills, and weight loss, Eyes: Negative for injury, sp3 pain, redness, and discharge, ENT: Negative for injury, pain, and discharge, Neck: Negative for injury, pain, and swelling, Respiratory: Negative for shortness of breath, cough, wheezing, and pleuritic chest pain, Abdomen/GI: Negative for abdominal pain, nausea, vomiting, diarrhea, and constipation, Back: Negative for injury and pain, MS/Extremity: Negative for injury and deformity, Skin: Negative for injury, rash, and discoloration, Neuro: Negative for headache, weakness, numbness, tingling, and seizure, Psych: Negative for depression, anxiety, suicide ideation, homicidal ideation, and hallucinations, Endocrine: Negative for neck swelling, polydipsia, polyuria, polyphagia, and marked weight changes, Hematologic/Lymphatic: Negative for swollen nodes, abnormal bleeding, and unusual bruising. 13:10 All other systems are negative. Exam: 13:10 Constitutional: This is a well developed, well nourished patient who is awake, alert, sp3 and in no acute distress. Head/Face: Normocephalic, atraumatic. Eyes: Pupils equal round and reactive to light, extra-ocular motions intact. Lids and lashes normal. Conjunctiva and sclera are non-icteric and not injected. Cornea within normal limits. Periorbital areas with no swelling, redness, or edema. ENT: Nares patent. No nasal discharge, no septal abnormalities noted. External auditory canals are clear. Oropharynx with no redness, swelling, or masses, exudates, or evidence of obstruction, uvula midline. Mucous membranes moist. Neck: Trachea midline, no thyromegaly or masses palpated, and no cervical lymphadenopathy. Supple, full range of motion without nuchal rigidity, or vertebral point tenderness. No Meningismus. Chest/axilla: Normal chest wall appearance and motion. Nontender with no deformity. No lesions are appreciated. Cardiovascular: Regular rate and rhythm with a normal S1 and S2. No gallops, murmurs, or rubs. Normal PMI, no JVD. No pulse deficits. Respiratory: Lungs have equal breath sounds bilaterally, clear to auscultation and percussion. No rales, rhonchi or wheezes noted. No increased work of breathing, no retractions or nasal flaring. Abdomen/GI: Soft, non-tender, with normal bowel sounds. No distension or tympany. No guarding or rebound. No evidence of tenderness throughout. Back: No spinal tenderness. No costovertebral tenderness. Full range of motion. Skin: Warm, dry with normal turgor. Normal color with no rashes, no lesions, and no evidence of cellulitis. MS/ Extremity: Pulses equal, no cyanosis. Neurovascular intact. Full, normal range of motion. Neuro: Awake and alert, GCS 15, oriented to person, place, time, and situation. Cranial nerves II-XII grossly intact. Motor strength 5/5 in all extremities. Sensory grossly intact. Cerebellar exam normal. Normal gait. Vital Signs: 11:37 BP 139 / 99; Pulse 86; Resp 17; Temp 98.2(TE); Pulse Ox 100% on R/A; Weight 111.13 kg tw2 (R); Height 5 ft. 11 in. (180.34 cm); Pain 0/10; 11:46 BP 138 / 92; Pulse 86; Resp 18; Temp 98.2; Pulse Ox 100% ; sl2 13:30 BP 135 / 88; Pulse 82; Resp 16; Temp 98.1(O); Pulse Ox 99% on R/A; sl2 14:24 BP 123 / 87; Pulse 77; Resp 18; Temp 98.2; Pulse Ox 97% on R/A; sl2 15:40 BP 139 / 91; Pulse 73; Resp 16; Pulse Ox 96% on R/A; mh5 16:00 BP 128 / 83; Pulse 78; Resp 18; Temp 98.4; Pulse Ox 100% on R/A; sl2 11:37 Body Mass Index 34.17 (111.13 kg, 180.34 cm) tw2 MDM: 11:53 Patient medically screened. sp3 13:11 Data reviewed: vital signs, nurses notes. ED course: 46-year-old male presents with sp3 left arm tingling which is resolved nonspecific symptoms including generalized weakness secondary to probable stress due to his personal life. For set of cardiac markers are negative and EKG is normal. Will obtain second cardiac marker at 4 hours and probable discharge from there. Heart score is 2.. 16:11 ED course: Second troponin is negative. Will discharge home at this time with PCP sp3 follow-up.. 08/09 11:54 Order name: Basic Metabolic Panel sp3 08/09 11:54 Order name: CBC with Diff sp3 08/09 11:54 Order name: LFT's; Complete Time: 12:44 sp3 08/09 11:54 Order name: Magnesium; Complete Time: 12:44 sp3 08/09 11:54 Order name: NT PRO-BNP; Complete Time: 12:44 sp3 08/09 11:54 Order name: Troponin (emerg Dept Use Only); Complete Time: 12:44 sp3 08/09 11:54 Order name: XRAY Chest (1 view); Complete Time: 16:10 sp3 08/09 11:54 Order name: EKG; Complete Time: 11:55 sp3 08/09 11:54 Order name: CT Head Brain wo Cont; Complete Time: 12:44 sp3 08/09 11:55 Order name: Basic Metabolic Panel; Complete Time: 12:44 EDMS 08/09 11:55 Order name: CBC with Automated Diff; Complete Time: 12:44 EDMS 08/09 12:53 Order name: Troponin (emerg Dept Use Only): Please draw 4 hours after first draw. sp3 08/09 12:53 Order name: Troponin (Emerg Dept Use Only); Complete Time: 16:10 EDMS 08/09 11:54 Order name: Cardiac monitoring; Complete Time: 12:09 sp3 08/09 11:54 Order name: EKG - Nurse/Tech; Complete Time: 12:09 sp3 08/09 11:54 Order name: IV Saline Lock; Complete Time: 12:09 sp3 08/09 11:54 Order name: Labs collected and sent; Complete Time: 12:09 sp3 08/09 11:54 Order name: O2 Per Protocol; Complete Time: 11:55 sp3 08/09 11:54 Order name: O2 Sat Monitoring; Complete Time: 11:55 sp3 Administered Medications: No medications were administered Disposition Summary: 08/09/21 16:12 Discharge Ordered Location: Home sp3 Condition: Stable sp3 Diagnosis - Chest pain, unspecified sp3 - Dizziness and giddiness sp3 Discharge Instructions: - Discharge Summary Sheet sp3 - Nonspecific Chest Pain, Adult sp3 - Managing Stress, Adult sp3 Forms: - Medication Reconciliation Form sp3 - Thank You Letter sp3 - Antibiotic Education sp3 - Prescription Opioid Use sp3 Signatures: Dispatcher [employer] EDMS Liberty Hood RN RN tw2 Marii Harvey MD MD sp3 Corrections: (The following items were deleted from the chart) 12:52 11:55 PROTIME (+INR)+[email or web address] ordered. EDCO EDMS 16:11 16:11 ED course: Troponin is negative. Will discharge home at this time with PCP sp3 follow-up.. sp3
[2021-08-09 16:38] VITALS: BP 128/83; TEMP 98.4; O2SAT 100
--- NOTE | 2021-08-10 18:27 | EKG ---
Test Date: 2021-08-09 Test Time: 11:55:40 Hand Crown Pouncer: DENNYS MEASUREMENT RESULTS: Intervals: Rate: 81 TN: 134 QRSD: 94 QT: 402 QTc: 466 [place]: P: 56 TN: 134 QRS: 48 T: 46 INTERPRETIVE STATEMENTS: Normal sinus rhythm Normal ECG Compared to ECG 05/12/2018 09:37:43 Sinus bradycardia no longer present Electronically Signed On 08-10-21 18:23:49 [employer] by Nam Rice
--- OUTSIDE RECORDS SUMMARY | 2021-08-15 15:06 | XMS REPORT | Continuity of Care Document ---
:1975 Author Organization [facility] t Address [address] [place] [address] Care Team Providers Name Role Phone Tasha SANTOS Attending Clinician TASHA Attending Clinician Unavailable Payers Payer Name Policy Type Policy Number Effective Date Expiration Date S ource Problems Condition Condition Condition Status Onset Resolution Last Treating Co mments Source Name Details Category Date Date Treatment Clinician Date Non-recurr Non-recurr Disease Active Overview : Univers ent acute ent acute -28 Last ity of suppurativ suppurativ 00:00: Assessmen [place] e otitis e otitis 00 t & Plan: Med ical media of media of Complete Bran ch left ear left ear antibioti without without cs as spontaneou spontaneou prescribe s rupture s rupture d, of of discussed tympanic tympanic use of, membrane membrane flonase or zyrtec, also recommend good hand hygiene, rest and hydration , may use NSAIDs/ty lenol for pain/feve r. RTC as needed. Vitamin D Vitamin D Disease Active Uni vers deficiency deficiency 2-16 it y of 00:00: [place] [facility] Snoring Snoring Disease Active Univers 2-12 ity of 00:00: [place] 00 [facility] Benign Benign Disease Active Univers essential essential 3-10 ity of hypertens[place] hypertens[place] Light Light Disease Active Univers cigarette cigarette 5-10 ity of smoker smoker 00:00: [place] (1-9 (10-11 00 Medical cigs/day) cigs/day) Bran ch Incomplete Incomplete Problem Active C [facility] [...] Outpati ent Clinics Allergies, Adverse Reactions, Alerts Allergy Allergy Status Severity Reaction(s) Onset Inactive Treating Comm ents Source Name Type Date Date Clinician NO KNOWN Drug Active Univers ALLERGIE Class ity of [facility] Social History Social Habit Start Date Stop Date Quantity Comments Source Sex Assigned At [facility] Exposure to Unable to assess [facility] SARS-CoV-2 (event) [facility] Smoking Status Start Date Stop Date Source Unknown if ever smoked [facility] Medications Ordered Filled Start Stop Current Ordering Indication Dosage Frequency Signature Comments Components Source Medication Medication Date Date Medication? Clinician (SIG) Name Name ketorolac 2019- No 30mg 30 mg, Unive rs (TORADOL) 06-22 Slow IV ity of injection 23:00: 21:56 [place], [place] 30 mg 00 :00 ONCE, 1 Medical dose, [facility] 06/22/20 at 1800, TE[place]O
Fa culty member approving Restricted medication : EMERGENCY ROOM, nitroglycer Yes .4mg 0.4 mg, Uni vers in 06-22 Sublingual ity of (NITROSTAT) 22:31: , Q5MIN Yoel as sublingual 37 PRN, Medical tablet 0.4 Starting Branc h mg [place] 06/22/20 at 1731, Until Discontinu ed, TEOD[place]O, Chest pain aspirin 2020- No 325mg 325 mg, Unive rs tablet 325 06-22 Oral, ity of mg 21:00: 20:51 ONCE, 1 [place] 00 :00 dose, [facility] 06/22/20 at Branch 1600, [place] 2018-0 Yes Khoa [address] [facility] [address] 8-10 [facility] as needed [facility] Ibuprofen Ibuprofen Yes Khoa not [facility] defined [facility] Hydrochloro Hydrochloro Yes Khoa not [facility] thiazide thiazide [facility] defined [facility] Vitamin D Vitamin D Yes Khoa not [facility] (Ergocalcif (Ergocalcif [facility] defined [facility] - jayce) jayce) [facility] Losartan Losartan Yes Khoa not [facility] Potassium Potassium Sellers defined Kerry kes - [facility] No known No Univers medications [facility] Vital Signs Vital Name Observation Time Observation Value Comments Source Respiratory rate 2020-06-23 00:11:00 20 /min [facility] Systolic blood 2020-06-23 00:10:00 156 mm[Hg] Univer sity of [facility] Diastolic blood 2020-06-23 00:10:00 103 mm[Hg] Unive rsity of [facility] Oxygen saturation in 2020-06-23 00:10:00 97 /min University of Arterial blood by [facility] Pulse oximetry Branch Heart rate 2020-06-23 00:00:00 78 /min [facility] Body temperature 2020-06-22 22:39:00 36.28 Dulce Maria [facility] Body weight 2020-06-22 20:47:00 125 kg [facility] Respiratory rate 2020-06-23 00:11:00 20 /min Univ [facility] Systolic blood 2020-06-23 00:10:00 156 mm[Hg] Univer sit of [facility] Diastolic blood 2020-06-23 00:10:00 103 mm[Hg] Unive rsity of [facility] Oxygen saturation in 2020-06-23 00:10:00 97 /min [facility] Arterial blood by [facility] Pulse oximetry Branch Heart rate 2020-06-23 00:00:00 78 /min [facility] Body temperature 2020-06-22 22:39:00 36.28 Dulce Maria [facility] Body weight 2020-06-22 20:47:00 125 kg [facility] Procedures Procedure Date / Time Performed Performing Clinician Sourc e TROPONIN I 2020-06-22 23:51:00 [facility] (ID NOW RAPID 2020-06-22 23:10:00 Wilson, [facility] TESTING) Medical Branch XR CHEST 2 VW 2020-06-22 21:46:29 Tasha [facility] TROPONIN I 2020-06-22 21:02:00 Tasha [facility] HEPATIC FUNCTION PANEL 2020-06-22 21:02:00 Wilson, [facility] ([id number]) Medical Branch (ALB,T.PRO,BILI T,BU/BC,ALT,AST,ALK PHOS) BASIC METABOLIC PANEL 2020-06-22 21:02:00 [facility] (NA, K, CL, CO2, Medical Branch GLUCOSE, BUN, CREATININE, CA) CBC WITH DIFF 2020-06-22 21:02:00 Tasha [facility] URINALYSIS 2020-06-22 21:02:00 Tasha [facility] N-TERMINAL PRO-BNP 2020-06-22 21:02:00 Phong Wilson [facility] EKG-12 LEAD 2020-06-22 20:48:15 Tasha [facility] NOTICE OF PRIVACY 2020-06-22 20:35:54 Doctor Unassigned, No [facility] PRACTICES Name Medical Branch CONSENT/REFUSAL FOR 2020-06-22 20:35:39 Doctor Unassigned, No [facility] DIAGNOSIS AND Name Medical Branch TREATMENT Encounters Start End Encounter Admission Attending Care Care Encounter Source Date/Time Date/Time Type Type Clinicians Facility Department ID 2020-06-22 2020-06-22 Emergency [facility] [id number] 15:41:00 20:30:00 Phong Garcia [id number] [place] [id number] [place] [id number] 2020-06-22 2020-06-22 Emergency [facility] [id number] Univers 15:41:00 20:30:00 Phong Garcia [id number] i ty [facility] [id number] [place] [id number] [place] [id number] Branch 2020-06-22 2020-06-22 Emergency X TASHA, [facility] ERT [id number] Univers 15:41:00 15:41:00 PHONG ball of [facility] 2018-07-06 2018-07-06 [facility] [id number] 08:00:00 08:00:00 [facility] 2018-06-06 2018-06-06 [facility] [id number] 14:00:00 14:00:00 [facility] 2018-05-22 2018-05-22 [facility] [id number] 09:45:00 09:45:00 [facility] 2018-05-12 2018-05-12 [facility] [id number] 09:16:00 09:16:00 t [facility] 2018-05-09 2018-05-09 [facility] [id number] 13:21:00 13:21:00 t [facility] 2018-05-08 2018-05-08 [facility] [id number] 09:30:00 09:30:00 t [facility] Results Test Description Test Time Test Comments Results Result Comments Source TROPONIN I 2020-06-23 00:23:00 Test Item Value Reference Range Interpretation Comme nts TROPONIN I (test code = 0.005 ng/mL See_Comment [Au tomated message] The 0213160843) system which ge nerated this result tra nsmitted reference range : <=0.034. The reference r jacinto was not used to int erpret this result as normal/abnormal . ESTHELA (test code = ESTHELA) Equal or Less than 0.034 ng/ml---Normal ?Note: Cardiac troponin begins to rise 3-4 hours after the onset of ischemia. Repeat in 4-6 hours if the sample was drawn within 3-4 hours of the onset of the symptom and found normal. Between 0.035 and 0.120 ng/mL--- Borderline. Questionable myocardial injury or necrosis ? ?Note: Serial measurement may be necessary to confirm or exclude the diagnosis of myocardial injury or necrosis; Clinical correlation (symptoms, EKGs, imaging studies, and others) required; Repeat in 4-6 hours if clinically indicated. ? Equal or Higher than 0.121 ng/mL---Abnormal. Myocardial Injury or Necrosis Likely ? Biotin has been reported to cause a negative bias, interpret results relative to patient's use of biotin. ? Lab Interpretation (test Normal code = 88044-0) [facility]ID [facility])2020-06-22 23:43:00 Test Item Value Reference Range Interpretation Comments SARS-CoV-2 Rapid ID NOW Not Detected Not Detected (test code = 23163-1) ESTHELA (test code = ESTHELA) ID NOW COVID-19 Assay is an isothermal nucleic acid amplification test intended for the qualitative detection of nucleic acid from SARS-CoV-2 viral RNA in nasopharyngeal (HEMATOLOGY SUPERVISOR) specimens. It is used under Emergency Use Authorization (EUA) by FDA. The limit of detection (LOD) of the assay is 125 Genome Equivalents/mL. A positive result is indicative of the presence of SARS-CoV-2 RNA. ?Clinical correlation with patient history and other diagnostic information is necessary to determine patient infection status. A negative (Not Detected) result does not preclude SARS-CoV-2 infection. In patients with clinical symptoms and other tests that are consistent with SARS-CoV-2 infection, negative results should be treated as presumptive negative and a new specimen should be tested with alternative PCR molecular test. Invalid: Please collect a new specimen for repeat patient testing if clinically indicated. Lab Interpretation Normal (test code = 95131-9) [facility] 22:03:00 Test Item Value Reference Range Interpretation Comments APPEARANCE (test code = Clear Clear 6298951540) COLOR (test code = Yellow Yellow 4629949057) PH (test code = 4.8-8.0 8216999017) SP GRAVITY (test code = 1.003-1.030 9446269660) GLU U QUAL (test code = Normal Normal 5170956474) BLOOD (test code = Negative Negative 1581714420) KETONES (test code = Negative Negative 3882367604) PROTEIN (test code = Negative Negative 2887-8) UROBILIN (test code = 4.0 mg/dL Normal A 6064844421) BILIRUBIN (test code = Negative Negative 6661726753) NITRITE (test code = Negative Negative 1377234275) LEUK RITA (test code = Negative Negative 1997429377) RBC/HPF (test code = <1 See_Comment [Autom ated message] 9994500931) The system [employer] generated this result transmit clint reference range : 0 - 3 HPF. The refe rence range was not u sed to interpret th is result as normal/abnormal . WBC/HPF (test code = <1 See_Comment [Autom ated message] 7644124333) The system [employer] generated this result transmit clint reference range : 0 - 5 HPF. The refe rence range was not u sed to interpret th is result as normal/abnormal . BACTERIA (test code = Negative Negative 9859821211) Lab Interpretation (test Abnormal code = 64291-0) [facility] with [id number] 22:03:00 Test Item Value Reference Range Interpretation Comments WBC (test code = See_Comment H [Automated 2190-2) message] The sy stem which generated this result transmitted reference range : 4.20 - 10.70 10*3/?L. The reference range was not used to interpret this result as normal/abnormal . RBC (test code = See_Comment [Automated 179-8) message] The sy stem which generated this result transmitted reference range : 4.26 - 5.52 10*6/?L. The reference range was not used to interpret this result as normal/abnormal . HGB (test code = 18.2 g/dL 12.2-16.4 H 718-7) HCT (test code = 52.8 % 38.4-49.3 H 4544-3) MCV (test code = 96.2 fL 81.7-95.6 H 787-2) MCH (test code = 33.2 pg 26.1-32.7 H 785-6) MCHC (test code = 34.5 g/dL 31.2-35 786-4) RDW-SD (test code = 45.9 fL 38.5-51.6 93002-5) RDW-CV (test code = 12.7 % 12.1-15.4 788-0) PLT (test code = See_Comment [Automated 777-3) message] The sy stem which generated this result transmitted reference range : 150 - 328 10*3/ ?L. The reference r jacinto was not used to interpret this result as normal/abnormal . MPV (test code = 11.8 fL 9.8-13 15127-2) NRBC/100 WBC (test See_Comment [Automat ed code = 6389842902) message] The system which generated this result transmitted reference range : 0.0 - 10.0 /100 WBCs. The refer ence range was not u sed to interpret th is result as normal/abnormal . NRBC x10^3 (test code <0.01 See_Comment [Auto mated = 5204498529) message] The s ystem which generated this result transmitted reference range : 10*3/?L. The reference range was not used to interpret this result as normal/abnormal . GRAN MAT (NEUT) % 62.2 % (test code = 770-8) IMM GRAN % (test code 0.40 % = 8838379592) LYMPH % (test code = 28.5 % 736-9) MONO % (test code = 6.3 % 5905-5) EOS % (test code = 2.1 % 713-8) BASO % (test code = 0.5 % 706-2) GRAN MAT x10^3(ANC) 6.96 10*3/uL 1.99-6.95 H (test code = 1578536236) IMM GRAN x10^3 (test 0.04 10*3/uL 0-0.06 code = 2819595046) LYMPH x10^3 (test code 3.19 10*3/uL 1.09-3.23 = 731-0) MONO x10^3 (test code 0.71 10*3/uL 0.36-1.02 = 742-7) EOS x10^3 (test code = 0.23 10*3/uL 0.06-0.53 711-2) BASO x10^3 (test code 0.06 10*3/uL 0.01-0.09 = 704-7) Lab Interpretation Abnormal (test code = 18627-6) [facility] 2 [id number] 21:50:09 No acute cardiopulmonary abnormality. Preliminary Report Dictated by Resident: Griselda Alvarez MD., have reviewed this study and agree with theabove report.EXAM: XR CHEST 2 VW CLINICAL INDICATION: chest pain COMPARISON: None FINDINGS: The lungs are well-expanded and clear without focal consolidation, sizablepleural effusion, or pneumothorax. The posterior costophrenic anglesextending inferiorly out of the [id number]. The cardiac silhouette is normal in size. No acute osseous abnormality. [facility], Radiant Results Inft User - 06/22/2020 4:51 PM CDTEXAM: XR CHEST 2 VWCLINICAL INDICATION: chest pain COMPARISON: NoneFINDINGS:The lungs are well-expanded and clear without focal consolidation, sizablepleural effusion, or pneumothorax. The posterior costophrenic anglesextending inferiorly out of the [id number].The cardiac silhouette is normal in size. No acute osseous abnormality. IMPRESSIONNo acute cardiopulmonary abnormality.Preliminary Report Dictated by Resident: Griselda Bryson MD., have reviewed this study and agree with theabove report.[facility] [id number] 21:40:00 Test Item Value Reference Range Interpretation Comments TROPONIN I (test 0.008 ng/mL See_Comment [Automated code = 0121573771) message] The system which generated this result transmitted reference range : <=0.034. The reference range was not used to interpret this result as normal/abnormal . ESTHELA (test code = Equal or Less than ESTHELA) 0.034 ng/ml---Normal ?Note: Cardiac troponin begins to rise 3-4 hours after the onset of ischemia. Repeat in 4-6 hours if the sample was drawn within 3-4 hours of the onset of the symptom and found normal. Between 0.035 and 0.120 ng/mL--- Borderline. Questionable myocardial injury or necrosis ? ?Note: Serial measurement may be necessary to confirm or exclude the diagnosis of myocardial injury or necrosis; Clinical correlation (symptoms, EKGs, imaging studies, and others) required; Repeat in 4-6 hours if clinically indicated. ? Equal or Higher than 0.121 ng/mL---Abnormal. Myocardial Injury or Necrosis Likely ? Biotin has been reported to cause a negative bias, interpret results relative to patient's use of biotin. ? Lab Interpretation Normal (test code = 84948-9) [facility] [id number] 21:37:00 Test Item Value Reference Range Interpretation Comments NT-proBNP (test code 82 pg/mL See_Comment [Autom ated = 5689108831) message] The system which generated this result transmitted reference range : <=125. The reference range was not used to interpret this result as normal/abnormal . ESTHELA (test code = ESTHELA) Biotin has been reported to cause a negative bias, interpret results relative to patient's use of biotin. Lab Interpretation Normal (test code = 27510-4) [facility] (NA, K, CL, CO2, GLUCOSE, BUN, CREATININE, CA)2020-06-22 21:28:00 Test Item Value Reference Range Interpretation Comments NA (test code = 138 mmol/L 135-145 3895032972) K (test code = 4.2 mmol/L 3.5-5 7070250679) CL (test code = 102 mmol/L 98-108 4369899796) CO2 TOTAL (test code = 28 mmol/L 23-31 6296259491) AGAP (test code = 2-16 2761446847) BUN (test code = 8 mg/dL 7-23 2868864806) GLUCOSE (test code = 92 mg/dL 70-110 3695259445) CREATININE (test code 0.86 mg/dL 0.6-1.25 = 3838043713) CALCIUM (test code = 9.2 mg/dL 8.6-10.6 6226154161) eGFR Calculation mL/min/1.73m2 (Non-) (test code = 5959057677) eGFR Calculation mL/min/1.73m2 () (test code = 8257276740) ESTHELA (test code = ESTHELA) Association of Glomerular Filtration Rate (GFR) and Staging of Kidney Disease* + -+ + ---+| GFR (mL/min/1.73 m2) ?| With Kidney Damage ?| ?Without Kidney Damage+ -------+ ------+ ---------+| ?>90 ?| ?Stage one ?| ? Normal ?+ --+ -+ ----+| ?60-89 ?| ?Stage two ?| ? Decreased GFR ? + -+ + ---+| ?30-59 ?| ?Stage three ?| ? Stage three ? + -+ + ---+| ?15-29 ?| ?Stage four ? | ? Stage four ?+ --+ -+ ----+| ?<15 (or dialysis) ? ?| ?Stage five ? | ? Stage five ?+ --+ -+ ----+ *Each stage assumes the associated GFR level has been in effect for at least three months. ?Stages 1 to 5, with or without kidney disease, indicate chronic kidney disease. Notes: Determination of stages one and two (with eGFR >59mL/min/1.73 m2) requires estimation of kidney damage for at least three months as defined by structural or functional abnormalities of the kidney, manifested by either:Pathological abnormalities or Markers of kidney damage (including abnormalities in the composition of the blood or urine or abnormalities in imaging tests). [facility] (ALB, T.PRO, BILI T, BU/BC, ALT, AST, ALK PHOS)2020-06-22 21:28:00 Test Item Value Reference Range Interpretation Comments TOTAL BILI (test code = 9165377733) 0.7 mg/dL 0.1-1.1 BILI UNCON (test code = 2704197414) 0.6 mg/dL 0.1-1.1 BILI CONJ (test code = 9263442911) 0.0 mg/dL 0-0.3 T PROTEIN (test code = 5614792897) 7.8 g/dL 6.3-8.2 ALBUMIN (test code = 6005122027) 4.3 g/dL 3.5-5 ALK PHOS (test code = 1094180693) 59 U/L 34-122 ALTv (test code = 1742-6) 26 U/L 5-50 AST(SGOT) (test code = 3528174678) 33 U/L 13-40 Lab Interpretation (test code = Normal 05069-4) [facility]"
== END 2021-08-09 16:20 | disposition home or self-care (01) ==
LOC: ER 11:28
DX: R07.9 Chest pain, unspecified (principal); R42 Dizziness and giddiness; I10 Essential (primary) hypertension; E78.5 Hyperlipidemia, unspecified; Z86.73 Personal history of transient ischemic attack (TIA), and cerebral infarction without residual deficits
CPT/HCPCS: 36415; 70450; 71045; 80048; 80076; 83735; 83880; 84484; 85025; 93005; 99285

== ENCOUNTER 2021-08-21 18:08 | Emergency (ER) | payer OTHER ==
--- OUTSIDE RECORDS SUMMARY | 2021-08-21 18:11 | XMS REPORT | Continuity of Care Document ---
:1975 Author Organization [facility] t Address [address] [place] [address] Care Team Providers Name Role Phone Tasha [...] deficiency deficiency 2-16 it y of 00:00: [place] [facility] Snoring Snoring Disease Active Univers 2-12 ity of 00:00: [place] 00 Medical Branch Benign Benign Disease Active Univers essential essential 3-10 ity of hypertensi hypertens[place] Light Light Disease Active Univers cigarette cigarette 5-10 ity of smoker smoker 00:00: [place] (1-9 (10-11 00 Medical cigs/day) cigs/day) Bran [...] Drug Active Univers ALLERGIE Class ity of [facility] Social History Social Habit Start Date Stop Date Quantity Comments Source Sex Assigned At [facility] Exposure to Unable to assess [facility] SARS-CoV-2 (event[facility] Smoking Status Start Date Stop Date Source Unknown if ever smoked [facility] Medications Ordered Filled Start Stop Current Ordering Indication Dosage Frequency Signature Comments Components Source Medication Medication Date Date Medication? Clinician (SIG) Name Name ketorolac 2019- No 30mg 30 mg, Unive rs (TORADOL) 06-22 Slow IV ity of injection 23:00: 21:56 Push, [place] 30 mg 00 :00 ONCE, 1 Medical dose, [facility] 06/22/20 at 1800, TE[place]
Fa culty member approving Restricted medication : EMERGENCY ROOM, nitroglycer Yes .4mg 0.4 mg, Uni vers in 06-22 Sublingual ity of (NITROSTAT) 22:31: , Q5MIN Yoel as sublingual 37 PRN, Medical tablet 0.4 Starting Branc h mg [place] 06/22/20 at 1731, Until Discontinu ed, TEOD[place]O, Chest pain aspirin 2020- No 325mg 325 mg, Unive rs tablet 325 06-22 Oral, ity of mg 21:00: 20:51 ONCE, 1 [place] 00 :00 dose, [facility] 06/22/20 at Branch 1600, STAT [place] 2018-0 Yes Khoa [address] [facility] 8-10 Sellers as needed [facility] Ibuprofen Ibuprofen Yes Khoa not [facility] defined [facility] Hydrochloro Hydrochloro Yes Khoa not [facility] thiazide thiazide Sellers defined [facility] - [facility] Vitamin D Vitamin D Yes Khoa not [facility] (Ergocalcif (Ergocalcif Sellers defined [facility] - jayce) jayce) [facility] Losartan Losartan Yes Khoa not [facility] Potassium Potassium Sellers defined Kerry kes - [facility] No known No Univers medications [facility] Vital Signs Vital Name Observation Time Observation Value Comments Source Respiratory rate 2020-06-23 00:11:00 20 /min [facility] Systolic blood 2020-06-23 00:10:00 156 mm[Hg] Univer sity of [facility] Diastolic blood 2020-06-23 00:10:00 103 mm[Hg] Unive rsity of [facility] Oxygen saturation in 2020-06-23 00:10:00 97 /min University of Arterial blood by [facility] Pulse oximetry Branch Heart rate 2020-06-23 00:00:00 78 /min [facility] Body temperature 2020-06-22 22:39:00 36.28 Dulce Maria [facility] Body weight 2020-06-22 20:47:00 125 kg [facility] Respiratory rate 2020-06-23 00:11:00 20 /min Univ [facility] Systolic blood 2020-06-23 00:10:00 156 mm[Hg] Univer sit of [facility] Diastolic blood 2020-06-23 00:10:00 103 mm[Hg] Unive rsity of [facility] Oxygen saturation in 2020-06-23 00:10:00 97 /min [facility] Arterial blood by [facility] Pulse oximetry Branch Heart rate 2020-06-23 00:00:00 78 /min [facility] Body temperature 2020-06-22 22:39:00 36.28 Dulce Maria [facility] Body weight 2020-06-22 20:47:00 125 kg [facility] Procedures Procedure Date / Time Performed Performing Clinician Sourc e TROPONIN I 2020-06-22 23:51:00 [facility] (ID NOW RAPID 2020-06-22 23:10:00 Wilson, [facility] TESTING) Medical Branch XR CHEST 2 VW 2020-06-22 21:46:29 Tasha [facility] TROPONIN I 2020-06-22 21:02:00 Tasha [facility] HEPATIC FUNCTION PANEL 2020-06-22 21:02:00 Wilson, [facility] ([id number]) Medical Branch (ALB,T.PRO,BILI T,BU/BC,ALT,AST,ALK PHOS) BASIC METABOLIC PANEL 2020-06-22 [facility], CO2, Medical Branch GLUCOSE, BUN, CREATININE, CA) CBC WITH DIFF 2020-06-22 21:02:00 Tasha [facility] URINALYSIS 2020-06-22 21:02:00 Tasha [facility] N-TERMINAL PRO-BNP 2020-06-22 21:02:00 Phong Wilson [facility] EKG-12 LEAD 2020-06-22 20:48:15 Tasha [facility] NOTICE OF PRIVACY 2020-06-22 20:35:54 Doctor Unassigned, No [facility] PRACTICES Name Medical Branch CONSENT/REFUSAL FOR 2020-06-22 20:35:39 Doctor Unassigned, No [facility] DIAGNOSIS AND Name Medical Branch TREATMENT Encounters Start End Encounter Admission Attending Care Care Encounter Source Date/Time Date/Time Type Type Clinicians Facility Department ID 2020-06-22 2020-06-22 Emergency [facility] [id number] 15:41:00 20:30:00 Phong Garcia [id number] [place] [id number] [place] [id number] 2020-06-22 2020-06-22 Emergency [facility] [id number] Univers 15:41:00 20:30:00 Phong Garcia [id number] i ty [facility] [id number] [place] [id number] [place] [id number] Branch 2020-06-22 2020-06-22 Emergency X TASHA, [facility] ERT [id number] Univers 15:41:00 15:41:00 PHONG ball of [facility] 2018-07-06 2018-07-06 [facility] [id number] [facility] [address] 08:00:00 08:00:00 [facility] 2018-06-06 2018-06-06 [facility] [id number] 14:00:00 14:00:00 [facility] 2018-05-22 2018-05-22 [facility] [id number] 09:45:00 09:45:00 [facility] 2018-05-12 2018-05-12 [facility] [id number] 09:16:00 09:16:00 [facility] 2018-05-09 2018-05-09 [facility] [id number] 13:21:00 13:21:00 t [facility] 2018-05-08 2018-05-08 [facility] [id number] 09:30:00 09:30:00 t [facility] Results Test Description Test Time Test Comments Results Result Comments Source TROPONIN I 2020-06-23 00:23:00 Test Item Value Reference Range Interpretation Comme nts TROPONIN I (test code = 0.005 ng/mL See_Comment [Au tomated message] The 4772901612) system which ge nerated this result tra [...] ? Lab Interpretation (test Normal code = 26786-3) [facility]ID TEST[facility])2020-06-22 23:43:00 Test Item Value Reference Range Interpretation Comments SARS-CoV-2 Rapid ID NOW Not Detected Not Detected (test code = 51342-5) ESTHELA (test code = ESTHELA) ID NOW COVID-19 Assay is an isothermal nucleic acid amplification test intended for the qualitative detection of nucleic acid from SARS-CoV-2 viral RNA in nasopharyngeal (WHARFINGER CHIEF) specimens. It is used under Emergency Use [...] indicated. Lab Interpretation Normal (test code = 24208-7) [facility]ysis2020-09-20 22:03:00 Test Item Value Reference Range Interpretation Comments APPEARANCE (test code = Clear Clear 0774998096) COLOR (test code = Yellow Yellow 0704299337) PH (test code = 4.8-8.0 9159696000) SP GRAVITY (test code = 1.003-1.030 2968369201) GLU U QUAL (test code = Normal Normal 1696349618) BLOOD (test code = Negative Negative 6136911554) KETONES (test code = Negative Negative 5086590958) PROTEIN (test code = Negative Negative 2887-8) UROBILIN (test code = 4.0 mg/dL Normal A 0259062958) BILIRUBIN (test code = Negative Negative 9900038593) NITRITE (test code = Negative Negative 3503329757) LEUK RITA (test code = Negative Negative 3629906342) RBC/HPF (test code = <1 See_Comment [Autom ated message] 9571484922) The system Yunait generated this result transmit clint reference range : 0 - 3 HPF. The refe rence range was not u sed to interpret th is result as normal/abnormal . WBC/HPF (test code = <1 See_Comment [Autom ated message] 5520949791) The system Yunait generated this result transmit clint reference range : 0 - 5 HPF. The refe rence range was not u sed to interpret th is result as normal/abnormal . BACTERIA (test code = Negative Negative 0620674813) Lab Interpretation (test Abnormal code = 96221-9) [facility] with [id number] 22:03:00 Test Item Value Reference Range Interpretation Comments WBC (test code = See_Comment H [Automated 9090-2) message] The sy stem which generated this result transmitted reference range : 4.20 - 10.70 10*3/?L. The reference range was not used to interpret this result as normal/abnormal . RBC (test code = See_Comment [Automated 569-8) message] The sy stem which generated this [...] RDW-SD (test code = 45.9 fL 38.5-51.6 91494-4) RDW-CV (test code = 12.7 % 12.1-15.4 788-0) PLT (test code = See_Comment [Automated 777-3) message] The sy stem which generated this result transmitted reference range : 150 - 328 10*3/ ?L. The reference r jacinto was not used to interpret this result as normal/abnormal . MPV (test code = 11.8 fL 9.8-13 04598-4) NRBC/100 WBC (test See_Comment [Automat ed code = 1911326702) message] The system which generated this result transmitted reference range : 0.0 - 10.0 /100 WBCs. The refer ence range was not u sed to interpret th is result as normal/abnormal . NRBC x10^3 (test code <0.01 See_Comment [Auto mated = 7631944300) message] The s ystem which generated this result transmitted reference range : 10*3/?L. The reference range was not used to interpret this result as normal/abnormal . GRAN MAT (NEUT) % 62.2 % (test code = 770-8) IMM GRAN % (test code 0.40 % = 0229371921) LYMPH % (test code = 28.5 % 736-9) MONO % (test code = 6.3 % 5905-5) EOS % (test code = 2.1 % 713-8) BASO % (test code = 0.5 % 706-2) GRAN MAT x10^3(ANC) 6.96 10*3/uL 1.99-6.95 H (test code = 7940310469) IMM GRAN x10^3 (test 0.04 10*3/uL 0-0.06 code = 4183129748) LYMPH x10^3 (test code 3.19 10*3/uL 1.09-3.23 = 731-0) MONO x10^3 (test code 0.71 10*3/uL 0.36-1.02 = 742-7) EOS x10^3 (test code = 0.23 10*3/uL 0.06-0.53 711-2) BASO x10^3 (test code 0.06 10*3/uL 0.01-0.09 = 704-7) Lab Interpretation Abnormal (test code = 95873-3) [facility] 2 [id number] 21:50:09 No acute cardiopulmonary abnormality. Preliminary Report Dictated by Resident: Griselda Alvarez MD., have reviewed this study and agree with theabove report.EXAM: XR CHEST 2 VW CLINICAL INDICATION: chest pain COMPARISON: None FINDINGS: The lungs are well-expanded and clear without focal consolidation, sizablepleural effusion, or pneumothorax. The posterior costophrenic anglesextending inferiorly out of the nshmy-eb-kpcn. The cardiac silhouette is normal in size. No acute osseous abnormality. [facility], Radiant Results Inft User - 06/22/2020 4:51 PM CDTEXAM: XR CHEST 2 VWCLINICAL INDICATION: chest pain COMPARISON: NoneFINDINGS:The lungs are well-expanded and clear without focal consolidation, sizablepleural effusion, or pneumothorax. The posterior costophrenic anglesextending inferiorly out of the nwviu-dq-wwar.The cardiac silhouette is normal in size. No acute osseous abnormality. IMPRESSIONNo acute cardiopulmonary abnormality.Preliminary Report Dictated by Resident: Griselda Bryson MD., have reviewed this study and agree with theabove report.[facility] CenterTrb[facility] hospitalnin [id number] 21:40:00 Test Item Value Reference Range Interpretation Comments TROPONIN I (test 0.008 ng/mL See_Comment [Automated code = 1019281836) message] The system which generated this result [...] ? Lab Interpretation Normal (test code = 12242-8) [facility] Center[facility]AL [id number] 21:37:00 Test Item Value Reference Range Interpretation Comments NT-proBNP (test code 82 pg/mL See_Comment [Autom ated = 3826772673) message] The system which generated this result transmitted reference range : <=125. The reference range was not used to interpret this result as normal/abnormal . ESTHELA (test code = ESTHELA) Biotin has been reported to cause a negative bias, interpret results relative to patient's use of biotin. Lab Interpretation Normal (test code = 69965-7) [facility] (NA, K, CL, CO2, GLUCOSE, BUN, CREATININE, CA)2020-06-22 21:28:00 Test Item Value Reference Range Interpretation Comments NA (test code = 138 mmol/L 135-145 4913185751) K (test code = 4.2 mmol/L 3.5-5 5566057246) CL (test code = 102 mmol/L 98-108 7846388204) CO2 TOTAL (test code = 28 mmol/L 23-31 7105025889) AGAP (test code = 2-16 3735344307) BUN (test code = 8 mg/dL 7-23 9347609127) GLUCOSE (test code = 92 mg/dL 70-110 8212661886) CREATININE (test code 0.86 mg/dL 0.6-1.25 = 8468643709) CALCIUM (test code = 9.2 mg/dL 8.6-10.6 1372537313) eGFR Calculation mL/min/1.73m2 (Non-) (test code = 5480298632) eGFR Calculation mL/min/1.73m2 () (test code = 6817960441) ESTHELA (test code = ESTHELA) Association of [...] or urine or abnormalities in imaging tests). [facility] Center[facility] Function [facility] (ALB, T.PRO, BILI T, BU/BC, ALT, AST, ALK PHOS)2020-06-22 21:28:00 Test Item Value Reference Range Interpretation Comments TOTAL BILI (test code = 8030016140) 0.7 mg/dL 0.1-1.1 BILI UNCON (test code = 0433664452) 0.6 mg/dL 0.1-1.1 BILI CONJ (test code = 9313617766) 0.0 mg/dL 0-0.3 T PROTEIN (test code = 6152550021) 7.8 g/dL 6.3-8.2 ALBUMIN (test code = 5700407177) 4.3 g/dL 3.5-5 ALK PHOS (test code = 9461431878) 59 U/L 34-122 ALTv (test code = 1742-6) 26 U/L 5-50 AST(SGOT) (test code = 7039888971) 33 U/L 13-40 Lab Interpretation (test code = Normal 78048-6) [facility]"
[2021-08-21 18:53] LABS: Absolute Lymphocytes (CBC) 1.4 K/uL (0.7-4.9); Basophils % 0.5 % (0-1.3); Hematocrit 51.8 % (39.6-49.0); Lymphocytes % 16.9 % (15.3-44.8); MPV 8.4 fL (7.6-11.3); Protime INR 1.08; RBC Red Blood Cell Count 5.16 M/uL (4.33-5.43)
[2021-08-21 19:00] LABS: ALT/SGPT 28 U/L (12-78); AST/SGOT 13 U/L (15-37); Albumin 3.1 g/dL (3.4-5.0); Alkaline Phosphatase 56 U/L (45-117); BUN Blood Urea Nitrogen 5 mg/dL (7-18); Bicarbonate 28 mmol/L (21-32); Bilirubin Direct 0.1 mg/dL (0-0.2); Bilirubin Total 0.3 mg/dL (0.2-1.0); Glucose Level 116 mg/dL (74-106); Magnesium 2.3 mg/dL (1.8-2.4); NT PRO-BNP 49 pg/mL (<125); Protein, Total 6.5 g/dL (6.4-8.2); Sodium Level 138 mmol/L (136-145); Troponin (Emerg Dept Use Only) < 0.02 ng/mL (0.0-0.045)
--- NOTE | 2021-08-21 19:19 | RAD REPORT ---
EXAM DESCRIPTION: CT - Head C Spine Mpr Wo Con - 08/21/2021 7:00 pm CLINICAL HISTORY: Syncope. Head and neck injury status post fall. Head and neck pain COMPARISON: August 09, 2021 TECHNIQUE: Computed axial tomography of the head and cervical spine was obtained. Sagittal and coronal reconstruction was performed. All CT scans are performed using dose optimization technique as appropriate and may include automated exposure control or mA/KV adjustment according to patient size. FINDINGS: An intracranial bleed is not seen. The ventricles are normal in caliber. An extra-axial fl uid collection is not noted.Fluid within the visualized sinuses and mastoids is not seen. Empty sella turcica A cervical fracture is not visualized. No dislocation is noted. Mild chronic ethmoid sinusitis IMPRESSION: No acute intracranial abnormality is seen. A cervical fracture is not visualized. If the patient continues to have symptoms to suggest intracra nial /spinal cord pathology then MRI would be recommended
--- NOTE | 2021-08-21 19:23 | RAD REPORT ---
EXAM DESCRIPTION: Arti Single View08/21/2021 6:48 pm CLINICAL HISTORY: syncope COMPARISON: August 09, 2021 FINDINGS: The lungs appear clear of acute infiltrate. The heart is normal size IMPRESSION: No acute abnormalities displayed
[2021-08-21] MEDS ORDERED: NA CHLORIDE 0.9% 1,000 ML ONE (19:36)
[2021-08-21] MEDS ORDERED: POTASSIUM 25 MEQ EFFERV TAB ONE (19:36)
[2021-08-21 21:00] LABS: Barbiturates NEGATIVE (NEGATIVE); Benzodiazepines NEGATIVE (NEGATIVE); Cocaine NEGATIVE (NEGATIVE); METHAMPHETAM NEGATIVE (NEGATIVE); Methadone NEGATIVE (NEGATIVE); Opiates NEGATIVE (NEGATIVE); Phencyclidine NEGATIVE (NEGATIVE); THC Cannibis NEGATIVE (NEGATIVE)
[2021-08-21] MEDS ORDERED: POTASSIUM CL SA 10 MEQ TAB PO ONE (21:52)
--- NOTE | 2021-08-21 22:07 | ER ---
Nurse's Notes [facility] Name: Jerome Lora Age: 46 yrs Sex: Male : 1975 Arrival Date: 08/21/2021 Time: 18:11 Bed 16 Private MD: Diagnosis: Alcohol use, unspecified with intoxication;Hypokalemia;Syncope Presentation: 08/21 18:10 Chief complaint: EMS states: Toned out for syncopal episode, pt was sitting on back jl7 back and drinking beer and passed out, pt reports drinking 6 beers, drinks 3-4 beers every night. 18:10 Coronavirus screen: At this time, the client does not indicate any symptoms associated jl7 with coronavirus-19. Ebola Screen: No symptoms or risks identified at this time. Initial Sepsis Screen: Does the patient meet any 2 criteria? No. Patient's initial sepsis screen is negative. Does the patient have a suspected source of infection? No. Patient's initial sepsis screen is negative. Risk Assessment: Do you want to hurt yourself or someone else? Patient reports no desire to harm self or others. Onset of symptoms was August 21, 2021. Care prior to arrival: IV initiated. 20 GA, in the right antecubital area. 18:10 Method Of Arrival: EMS: [facility] 18:10 Acuity: KIMBERLEY 2 jl7 Triage Assessment: 19:20 General: Appears in no apparent distress. comfortable, Behavior is calm, cooperative. mr2 Pain: Denies pain. Historical: - Allergies: 18:21 No Known Allergies; jl7 - Home Meds: 18:21 losartan 100 mg Oral tab 1 tab once daily [Active]; jl7 - PMHx: 18:21 CVA; Hyperlipidemia; Hypertensive disorder; jl7 - PSHx: 18:21 Shoulder; jl7 - Immunization history:: Adult Immunizations not up to date. - Social history:: Smoking status: Patient reports the use of cigarette tobacco products, smokes one-half pack cigarettes per day, Patient uses alcohol, on a daily basis. admits to "couple of beers" a day. Screenin:20 Abuse screen: Denies threats or abuse. Denies injuries from another. Nutritional mr2 screening: No deficits noted. Tuberculosis screening: No symptoms or risk factors identified. Fall Risk IV access (20 points). Gait- Impaired (20 pts.). Mental Status- Overestimates/Forgets Limitations (15 pts.). Assessment: 19:10 General: Appears in no apparent distress. comfortable, Behavior is calm, cooperative. mr2 Pain: Denies pain. Neuro: No deficits noted. Reports dizziness, since 1700 a syncopal episode Denies blurred vision difficulty swallowing, numbness photophobia diplopia. Vital Signs: 18:10 BP 133 / 95; Pulse 69; Resp 15; Temp 97.9; Pulse Ox 100% on R/A; Weight 104.33 kg; jl7 Height 5 ft. 11 in. (180.34 cm); Pain 0/10; 21:30 BP 127 / 88; Pulse 72; Resp 16; Temp 98.5; Pulse Ox 98% on R/A; Pain 1/10; mr2 18:10 Body Mass Index 32.08 (104.33 kg, 180.34 cm) jl7 ED Course: 18:11 Patient arrived in ED. em1 18:14 Lambert Ngo PA is PHCP. cp 18:14 Jamel Peterson MD is Attending Physician. cp 18:17 Nikki Rya, RN is Primary Nurse. jl7 18:21 Triage completed. jl7 18:21 Arm band placed on right wrist. jl7 18:48 XRAY Chest (1 view) In Process Unspecified. EDMS 18:57 EKG done, by ED staff, reviewed by Lambert GARRETT. mh5 18:58 Patient has correct armband on for positive identification. Placed in gown. Bed in low mh5 position. Call light in reach. Side rails up X2. Adult w/ patient. Warm blanket given. conveyor monitor on. Pulse ox on. NIBP on. 19:00 CT Head C Spine In Process Unspecified. EDMS 19:15 Primary Nurse role handed off by Nikki Ray RN mw2 19:20 No provider procedures requiring assistance completed. mr2 19:33 Tez Velazquez, JOANN is Primary Nurse. mr2 20:39 UDS Sent. mr2 22:05 IV discontinued, intact, No redness/swelling at site. mr2 Administered Medications: 19:47 Drug: Potassium Effervescent Tablet 50 mEq Route: PO; mr2 19:47 Drug: NS 0.9% 1000 ml Route: IV; Rate: 1 bolus; Site: right antecubital; mr2 21:57 Drug: Potassium Chloride Liquid 40 mEq Route: PO; mr2 Outcome: 22:07 Discharge ordered by . darien 22:10 Discharged to home ambulatory, with family. mr2 22:10 Condition: stable 22:10 Discharge instructions given to patient, Instructed on discharge instructions, follow mr2 up and referral plans. 22:19 Patient left the ED. mr2 Signatures: Dispatcher [employer] Renan Forte em1 Lambert Ngo PA PA cp Martinez, Maria [facility] Nikki Ray RN RN jl7 Christian Mann 2 Tez Velazquez RN RN mr2
--- NOTE | 2021-08-21 22:08 | EDPHYS ---
Physician Documentation [facility] Name: Jerome Lora Age: 46 yrs Sex: Male : 1975 Arrival Date: 08/21/2021 Time: 18:11 Bed 16 Private MD: ED Physician Jamel Peterson HPI: 08/21 18:25 This 46 yrs old Male presents to ER via EMS with complaints of Syncopal Episode. cp 18:25 The patient has experienced syncope, lost consciousness. Onset: The symptoms/episode cp began/occurred just prior to arrival. Duration: This was a single episode, that lasted an unknown period of time. Associated injury: The patient did not suffer any apparent associated injury. 18:25 Associated signs and symptoms: Pertinent positives: dizziness, Pertinent negatives: cp abdominal pain, chest pain, numbness. 18:25 Current symptoms: Currently, the patient is not experiencing any symptoms. cp 18:25 Patient admits to consuming 5-6 beers this evening. Patient reports daily drinking of cp 3-4 beers/night. Historical: - Allergies: 18:21 No Known Allergies; jl7 - Home Meds: 18:21 losartan 100 mg Oral tab 1 tab once daily [Active]; jl7 - PMHx: 18:21 CVA; Hyperlipidemia; Hypertensive disorder; jl7 - PSHx: 18:21 Shoulder; jl7 - Immunization history:: Adult Immunizations not up to date. - Social history:: Smoking status: Patient reports the use of cigarette tobacco products, smokes one-half pack cigarettes per day, Patient uses alcohol, on a daily basis. admits to "couple of beers" a day. ROS: 18:30 Constitutional: Negative for body aches, chills, fever, poor PO intake. cp 18:30 Eyes: Negative for injury, pain, redness, and discharge. cp 18:30 ENT: Negative for ear pain, sore throat, difficulty swallowing, difficulty handling secretions. 18:30 Neck: Negative for pain with movement, pain at rest. 18:30 Cardiovascular: Negative for chest pain, palpitations. 18:30 Respiratory: Negative for cough, shortness of breath, wheezing. 18:30 Abdomen/GI: Negative for abdominal pain, nausea, vomiting, and diarrhea. 18:30 Back: Negative for pain at rest, pain with movement. 18:30 Neuro: Positive for dizziness, syncope, Negative for altered mental status, headache, seizure activity, weakness. 18:30 All other systems are negative. Exam: 18:35 Constitutional: The patient appears in no acute distress, alert, awake, cp non-diaphoretic, non-toxic, well developed, well nourished. 18:35 Head/Face: Normocephalic, atraumatic. cp 18:35 Eyes: Periorbital structures: appear normal, Pupils: equal, round, and reactive to light and accomodation, Extraocular movements: intact throughout, Conjunctiva: normal, no exudate, no injection, Sclera: no appreciated abnormality, Lids and lashes: appear normal, bilaterally. 18:35 ENT: External ear(s): are unremarkable, Ear canal(s): are normal, TM's: dullness, bilaterally, Nose: is normal, Mouth: Lips: moist, Oral mucosa: moist, Posterior pharynx: Airway: no evidence of obstruction, patent. 18:35 Neck: C-spine: vertebral tenderness, is not appreciated, crepitus, is not appreciated, ROM/movement: is normal, is supple, without pain, no range of motions limitations, no meningismus, no nuchal rigidity. 18:35 Chest/axilla: Inspection: normal, Palpation: is normal, no crepitus, no tenderness. 18:35 Cardiovascular: Rate: normal, Rhythm: regular. 18:35 Respiratory: the patient does not display signs of respiratory distress, Respirations: normal, no use of accessory muscles, no retractions, labored breathing, is not present, Breath sounds: are clear throughout, no decreased breath sounds, no stridor, no wheezing. 18:35 Abdomen/GI: Inspection: abdomen appears normal, Palpation: abdomen is soft and non-tender, in all quadrants. 18:35 Back: pain, is absent, ROM is normal. 18:35 Neuro: Orientation: to person, place \\T\\ time. Mentation: able to follow commands, slow to respond, Motor: moves all fours, strength is normal, Sensation: no obvious gross deficits. 18:48 ECG was reviewed by the Attending Physician. cp Vital Signs: 18:10 BP 133 / 95; Pulse 69; Resp 15; Temp 97.9; Pulse Ox 100% on R/A; Weight 104.33 kg; jl7 Height 5 ft. 11 in. (180.34 cm); Pain 0/10; 21:30 BP 127 / 88; Pulse 72; Resp 16; Temp 98.5; Pulse Ox 98% on R/A; Pain 1/10; mr2 18:10 Body Mass Index 32.08 (104.33 kg, 180.34 cm) jl7 MDM: 18:41 Patient medically screened. cp 22:06 Data reviewed: vital signs, nurses notes, lab test result(s), EKG, radiologic studies, cp CT scan, plain films. 22:06 Test interpretation: by ED physician or midlevel provider: ECG, plain radiologic cp studies. Counseling: I had a detailed discussion with the patient and/or guardian regarding: the historical points, exam findings, and any diagnostic results supporting the discharge/admit diagnosis, lab results, radiology results, the need for outpatient follow up, a family practitioner, to return to the emergency department if symptoms worsen or persist or if there are any questions or concerns that arise at home. Response to treatment: the patient's symptoms have markedly improved after treatment, VSS. Patient reports symptoms improved. Patient observed ambulating in ED w/o assistance. Will discharge to home for continued monitoring. 08/21 18:18 Order name: Basic Metabolic Panel; Complete Time: 19:20 cp 08/21 19:21 Interpretation: Normal except: K 3.0; GLUC 116; BUN 5; CA 8.4. 08/21 18:18 Order name: CBC with Diff; Complete Time: 19:20 08/21 19:22 Interpretation: Normal except: WBC 8.30; HCT 51.8; MCV 100.3; GISELA% 75.0. cp 08/21 18:18 Order name: LFT's; Complete Time: 19:20 cp 08/21 20:33 Interpretation: Normal except: AST 13; ALB 3.1; A/G 0.9. cp 08/21 18:18 Order name: Magnesium; Complete Time: 19:20 cp 08/21 18:18 Order name: NT PRO-BNP; Complete Time: 19:20 cp 08/21 18:18 Order name: PT-INR; Complete Time: 19:20 cp 08/21 18:18 Order name: CT Head C Spine; Complete Time: 19:20 cp 08/21 18:18 Order name: Troponin (emerg Dept Use Only); Complete Time: 19:20 cp 08/21 18:18 Order name: XRAY Chest (1 view); Complete Time: 19:32 cp 08/21 18:18 Order name: UDS; Complete Time: 21:18 cp 08/21 21:18 Interpretation: Reviewed. cp 08/21 18:18 Order name: ETOH Level; Complete Time: 19:20 cp 08/21 19:21 Interpretation: Abnormal: ETOH 156. 08/21 18:18 Order name: EKG; Complete Time: 18:19 cp 08/21 18:18 Order name: Cardiac monitoring; Complete Time: 18:24 cp 08/21 18:18 Order name: EKG - Nurse/Tech; Complete Time: 18:57 cp 08/21 18:18 Order name: IV Saline Lock; Complete Time: 19:02 cp 08/21 18:18 Order name: Labs collected and sent; Complete Time: 19:03 cp 08/21 18:18 Order name: O2 Per Protocol; Complete Time: 18:24 cp 08/21 18:18 Order name: O2 Sat Monitoring; Complete Time: 18:24 cp 08/21 19:21 Order name: Swallow Screen cp 08/21 21:03 Order name: Misc. Order: ambulate patient cp EC:48 Rate is 70 beats/min. Rhythm is regular. IA interval is normal. QRS interval is cp prolonged at 102 msec. QT interval is normal. T waves are Inverted in lead aVR. Interpreted by me. Reviewed by me. Administered Medications: 19:47 Drug: Potassium Effervescent Tablet 50 mEq Route: PO; mr2 19:47 Drug: NS 0.9% 1000 ml Route: IV; Rate: 1 bolus; Site: right antecubital; mr2 21:57 Drug: Potassium Chloride Liquid 40 mEq Route: PO; mr2 Disposition: 08/22 08:31 Co-signature as Attending Physician, Jamel Peterson MD I agree with the assessment and kdr plan of care. Disposition Summary: 08/21/21 22:07 Discharge Ordered Location: Home cp Problem: new cp Symptoms: have improved cp Condition: Stable cp Diagnosis - Alcohol use, unspecified with intoxication cp - Hypokalemia cp - Syncope cp Followup: cp - With: Private Physician - When: 2 - 3 days - Reason: Recheck today's complaints Discharge Instructions: - Discharge Summary Sheet cp - Alcohol Intoxication cp - Potassium Content of Foods cp - Syncope cp - Hypokalemia cp Forms: - Medication Reconciliation Form cp - Thank You Letter cp - Antibiotic Education cp - Prescription Opioid Use cp Signatures: Dispatcher [employer] EDJamel De La Torre MD MD kdr Lambert Ngo PA PA cp Nikki Ray RN RN jl7 Tez Velazquez RN RN mr2 Corrections: (The following items were deleted from the chart) 21:43 08/21 18:25 This 46 yrs old Male presents to ER via EMS with complaints of Suicidal cp Ideation. cp 08/22 21:43 11 18:25 Associated signs and symptoms: Pertinent negatives: abdominal pain, chest cp pain, numbness, cp
[2021-08-21 22:28] VITALS: BP 127/88; TEMP 98.5; O2SAT 98
--- NOTE | 2021-08-26 08:18 | EKG ---
Test Date: 2021-08-21 Test Time: 18:43:06 Medical Videographer: CHASIDY MEASUREMENT RESULTS: Intervals: Rate: 70 [place]: 154 QRSD: 102 QT: 440 QTc: 475 [place]: P: 47 [place]: 154 QRS: 58 T: 70 INTERPRETIVE STATEMENTS: Normal sinus rhythm Normal ECG Compared to ECG 08/09/2021 11:55:40 No significant changes Electronically Signed On 08-26-21 08:04:59 INSTALLMENT ACCOUNT CHECKER by Nam Rice
== END 2021-08-21 22:19 | disposition home or self-care (01) ==
LOC: ER 18:08
DX: F10.929 Alcohol use, unspecified with intoxication, unspecified (principal); E87.6 Hypokalemia; I10 Essential (primary) hypertension; F17.210 Nicotine dependence, cigarettes, uncomplicated; Z86.73 Personal history of transient ischemic attack (TIA), and cerebral infarction without residual deficits
CPT/HCPCS: 93005; 85025; 80048; 36415; 80320; 83735; 85610; 80076; 84484; 83880; 80307; 70450; 72125; 71045; 99284; J7030

== ENCOUNTER 2023-02-04 08:18 | Emergency (ER) | payer OTHER ==
--- OUTSIDE RECORDS SUMMARY | 2023-02-04 08:21 | XMS REPORT | Continuity of Care Document ---
:[address] [facility] t Address [address] [place] [address] [address] [place] [address] Care Team Providers Name Role Phone Phong Charles Attending Clinician PHONG CORDOVA Attending Clinician Unavailable Payers Payer Name Policy Type Policy Number Effective Date Expiration Date S ource Problems Condition Condition Condition Status Onset Resolution Last Treating Co mments Source Name Details Category Date Date Treatment Clinician Date Non-recurr Non-recurr Disease Active Overview : Univers ent acute ent acute -28 Last ity of suppurativ suppurativ 00:00: Assessmen Lam e otitis e otitis 00 t & [...] deficiency deficiency 2-16 it y of 00:00: [place] 00 Medical Branch Snoring Snoring Disease Active Univers 2-12 ity of 00:00: [place] 00 Medical Branch Benign Benign Disease Active Univers essential essential 3-10 ity of hypertensi hypertens[place] Light Light Disease Active Univers cigarette cigarette 5-10 ity of smoker smoker 00:00: [place] (-9 (1-9 00 Medical cigs/day) cigs/day) Bran ch Incomplete Incomplete Problem Active C ommon tear of tear of Spirit right right - [facility] cuff cuff [facility] Complete Complete Diagnosis Active Com mon tear of tear of Spirit right right - [facility] rotator [facility] cuff cuff [facility] Superior Superior Diagnosis Active Com mon glenoid glenoid Spirit labrum labrum - [facility] lesion of lesion of St right right [facility] shoulder, shoulder, Medi twin initial initial Center encounter encounter Pain in Pain in Diagnosis Active Commo n joint of joint of Spirit right right - [facility] shoulder shoulder [facility] Allergies, Adverse Reactions, Alerts Allergy Allergy Status Severity Reaction(s) Onset Inactive Treating Comm ents Source Name Type Date Date Clinician NO KNOWN Drug Active [facility] ALLERGIE Class ity Surgery [facility] Social History Social Habit Start Date Stop Date Quantity Comments Source Sex Assigned At [facility] Exposure to Unable to assess [facility] SARS-CoV-2 (event) [facility] Smoking Status Start Date Stop Date Source Unknown if ever smoked [facility] Medications Ordered Filled Start Stop Current Ordering Indication Dosage Frequency Signature Comments Components Source Medication Medication Date Date Medication? Clinician (SIG) Name Name ketorolac No 30mg 30 mg, Unive rs (TORADOL) 06-22 Slow IV ity of injection 23:00: 21:56 Push, [place] 30 mg 00 :00 ONCE, 1 Medical dose, [facility] 06/22/20 at 1800, [facility] Restricted medication : EMERGENCY ROOM, nitroglycer Yes .4mg 0.4 mg, Uni vers in 06-22 Sublingual ity of (NITROSTAT) 22:31: , Q5MIN Yoel as sublingual 37 PRN, Medical tablet 0.4 Starting Branc h mg [place] 06/22/20 at 1731, Until Discontinu ed, TEODORO, Chest pain aspirin 2020- No 325mg 325 mg, Unive rs tablet 325 06-22 Oral, ity of mg 21:00: 20:51 ONCE, 1 [place] 00 :00 dose, [facility] 06/22/20 at Branch 1600, STAT [place] 2018-0 Yes Khoa 1 tablet Comm on 8-10 Sellers as needed Spirit 00:00: - [facility] 00 [facility] Ibuprofen Ibuprofen Yes Khoa not Co mmon Sellers defined Spirit - [facility] Hydrochloro Hydrochloro Yes Khoa not Common thiazide thiazide Sellers defined Spir it [facility] Vitamin D Vitamin D Yes Khoa not Co mmon (Ergocalcif (Ergocalcif Sellers defined Spirit jayce) jayce) - [facility] Losartan Losartan Yes Khoa not Comm on Potassium Potassium Sellers defined Sp oralia - [facility] No known No Univers medications [facility] Vital Signs Vital Name Observation Time Observation Value Comments Source Respiratory rate 2020-06-23 00:11:00 20 /min Univ [facility] Systolic blood 2020-06-23 00:10:00 156 mm[Hg] Univer sity of pressure [facility] Diastolic blood 2020-06-23 00:10:00 103 mm[Hg] Unive rsity of [facility] Oxygen saturation in 2020-06-23 00:10:00 97 /min University Arterial blood by [facility] Pulse oximetry Branch Heart rate 2020-06-23 00:00:00 78 /min [facility] Body temperature 2020-06-22 22:39:00 36.28 [facility] Body weight 2020-06-22 20:47:00 125 kg [facility] Respiratory rate 2020-06-23 00:11:00 20 /min Univ [facility] Systolic blood 2020-06-23 00:10:00 156 mm[Hg] Univer sity of pressure [facility] Diastolic blood 2020-06-23 00:10:00 103 mm[Hg] Unive rsity of pressure [facility] Oxygen saturation in 2020-06-23 00:10:00 97 /min [facility] Arterial blood by [facility] Pulse oximetry Branch Heart rate 2020-06-23 00:00:00 78 /min [facility] Body temperature 2020-06-22 22:39:00 36.28 [facility] Body weight 2020-06-22 20:47:00 125 kg [facility] Procedures Procedure Date / Time Performed Performing Clinician Sour e TROPONIN I 2020-06-22 23:51:00 Phong Cordova [facility] COVID-19 (ID NOW RAPID 2020-06-22 23:10:00 Tasha [facility] TESTING) Medical Branch XR CHEST 2 VW 2020-06-22 21:46:29 Tasha [facility] TROPONIN I 2020-06-22 21:02:00 Tasha [facility] HEPATIC FUNCTION PANEL 2020-06-22 21:02:00 Cordova, [facility] ([id number]) Medical Branch (ALB,T.PRO,BILI T,BU/BC,ALT,AST,ALK PHOS) BASIC METABOLIC PANEL 2020-06-22 21:02:00 Cordova, [facility] (NA, K, CL, CO2, Medical Branch GLUCOSE, BUN, CREATININE, CA) CBC WITH DIFF 2020-06-22 21:02:00 Tasha [facility] URINALYSIS 2020-06-22 21:02:00 Tasha [facility] N-TERMINAL PRO-BNP 2020-06-22 21:02:00 Phong Cordova [facility] EKG-12 LEAD 2020-06-22 20:48:15 Tasha [facility] NOTICE OF PRIVACY 2020-06-22 20:35:54 Doctor Unassigned, No [facility] PRACTICES Name Medical Branch CONSENT/REFUSAL FOR 2020-06-22 20:35:39 Doctor Unassigned, No [facility] DIAGNOSIS AND Name Medical Branch TREATMENT Encounters Start End Encounter Admission Attending Care Care Encounter Source Date/Time Date/Time Type Type Clinicians Facility Department ID 2020-06-22 2020-06-22 Emergency [facility] [id number] 15:41:00 20:30:00 Phongcharleen Garcia [id number] [place] [id number] [place] [id number] 2020-06-22 2020-06-22 Emergency [facility] [id number] Univers 15:41:00 20:30:00 Phong Garcia [id number] i ty [facility] [id number] [facility] [id number] [place] [address] Branch 2020-06-22 2020-06-22 Emergency X TASHA, [facility] ERT [id number] Univers 15:41:00 15:41:00 PHONG ball [facility] 2018-07-06 2018-07-06 [facility] [id number] Common 08:00:00 08:00:00 [facility] 2018-06-06 2018-06-06 [facility] [id number] Common 14:00:00 14:00:00 t [facility] 2018-05-22 2018-05-22 [facility] [id number] Common 09:45:00 09:45:00 t [facility] t [facility] 2018-05-12 2018-05-12 [facility] [id number] Common 09:16:00 09:16:00 t [facility] 2018-05-09 2018-05-09 [facility] [id number] Common 13:21:00 13:21:00 t [facility] 2018-05-08 2018-05-08 [facility] [id number] Common 09:30:00 09:30:00 t [facility] Results Test Description Test Time Test Comments Results Result Comments Source TROPONIN I 2020-06-23 00:23:00 Test Item Value Reference Range Interpretation Comme nts TROPONIN I (test code = 0.005 ng/mL See_Comment [Au tomated message] The 1948522304) system which ge nerated this result tra [...] ? Lab Interpretation (test Normal code = 26306-9) [facility]ID [facility]2020-06-22 23:43:00 Test Item Value Reference Range Interpretation Comments SARS-CoV-2 Rapid ID NOW Not Detected Not Detected (test code = 87170-8) ESTHELA (test code = ESTHELA) ID NOW COVID-19 Assay is an isothermal nucleic acid amplification test intended for the qualitative detection of nucleic acid from SARS-CoV-2 viral RNA in nasopharyngeal (SECURITY PROGRAM MANAGER) specimens. It is used under Emergency Use [...] indicated. Lab Interpretation Normal (test code = 03247-7) [facility] 22:03:00 Test Item Value Reference Range Interpretation Comments APPEARANCE (test code = Clear Clear 2755924976) COLOR (test code = Yellow Yellow 8209296595) PH (test code = 4.8-8.0 0754761041) SP GRAVITY (test code = 1.003-1.030 9132692221) GLU U QUAL (test code = Normal Normal 0546372384) BLOOD (test code = Negative Negative 9958042486) KETONES (test code = Negative Negative 0122022027) PROTEIN (test code = Negative Negative 2887-8) UROBILIN (test code = 4.0 mg/dL Normal A 6407323045) BILIRUBIN (test code = Negative Negative 3893916815) NITRITE (test code = Negative Negative 2106250424) LEUK RITA (test code = Negative Negative 1511348503) RBC/HPF (test code = <1 See_Comment [Autom ated message] 1465429013) The system Yodlee generated this result transmit clint reference range : 0 - 3 HPF. The refe rence range was not u sed to interpret th is result as normal/abnormal . WBC/HPF (test code = <1 See_Comment [Autom ated message] 3382606587) The system Yodlee generated this result transmit clint reference range : 0 - 5 HPF. The refe rence range was not u sed to interpret th is result as normal/abnormal . BACTERIA (test code = Negative Negative 8185295940) Lab Interpretation (test Abnormal code = 70710-6) [facility] with [id number] 22:03:00 Test Item Value Reference Range Interpretation Comments WBC (test code = See_Comment H [Automated 5690-2) message] The sy stem which generated this result transmitted reference range : 4.20 - 10.70 10*3/?L. The reference range was not used to interpret this result as normal/abnormal . RBC (test code = See_Comment [Automated 759-8) message] The sy stem which generated this [...] RDW-SD (test code = 45.9 fL 38.5-51.6 58629-8) RDW-CV (test code = 12.7 % 12.1-15.4 788-0) PLT (test code = See_Comment [Automated 777-3) message] The sy stem which generated this result transmitted reference range : 150 - 328 10*3/ ?L. The reference r jacinto was not used to interpret this result as normal/abnormal . MPV (test code = 11.8 fL 9.8-13 04952-4) NRBC/100 WBC (test See_Comment [Automat ed code = 0159373335) message] The system which generated this result transmitted reference range : 0.0 - 10.0 /100 WBCs. The refer ence range was not u sed to interpret th is result as normal/abnormal . NRBC x10^3 (test code <0.01 See_Comment [Auto mated = 0831649124) message] The s ystem which generated this result transmitted reference range : 10*3/?L. The reference range was not used to interpret this result as normal/abnormal . GRAN MAT (NEUT) % 62.2 % (test code = 770-8) IMM GRAN % (test code 0.40 % = 7783586275) LYMPH % (test code = 28.5 % 736-9) MONO % (test code = 6.3 % 5905-5) EOS % (test code = 2.1 % 713-8) BASO % (test code = 0.5 % 706-2) GRAN MAT x10^3(ANC) 6.96 10*3/uL 1.99-6.95 H (test code = 8795233250) IMM GRAN x10^3 (test 0.04 10*3/uL 0-0.06 code = 1045734617) LYMPH x10^3 (test code 3.19 10*3/uL 1.09-3.23 = 731-0) MONO x10^3 (test code 0.71 10*3/uL 0.36-1.02 = 742-7) EOS x10^3 (test code = 0.23 10*3/uL 0.06-0.53 711-2) BASO x10^3 (test code 0.06 10*3/uL 0.01-0.09 = 704-7) Lab Interpretation Abnormal (test code = 17979-7) [facility] 2 [id number] 21:50:09 No acute cardiopulmonary abnormality. Preliminary Report Dictated by Resident: Griselda Alvarez MD., have reviewed this study and agree with theabove report.EXAM: XR CHEST 2 VW CLINICAL INDICATION: chest pain COMPARISON: None FINDINGS: The lungs are well-expanded and clear without focal consolidation, sizablepleural effusion, or pneumothorax. The posterior costophrenic anglesextending inferiorly out of the ueaoz-uu-qnts. The cardiac silhouette is normal in size. No acute osseous abnormality. [facility], Radiant Results Inft User - 06/22/2020 4:51 PM CDTEXAM: XR CHEST 2 VWCLINICAL INDICATION: chest pain COMPARISON: NoneFINDINGS:The lungs are well-expanded and clear without focal consolidation, sizablepleural effusion, or pneumothorax. The posterior costophrenic anglesextending inferiorly out of the nyeak-ur-erld.The cardiac silhouette is normal in size. No acute osseous abnormality. IMPRESSIONNo acute cardiopulmonary abnormality.Preliminary Report Dictated by Resident: Griselda Bryson MD., have reviewed this study and agree with theabove report.[facility] Hospital[facility] [id number] 21:40:00 Test Item Value Reference Range Interpretation Comments TROPONIN I (test 0.008 ng/mL See_Comment [Automated code = 7388190211) message] The system which generated this result [...] ? Lab Interpretation Normal (test code = 33445-9) [facility] [id number] 21:37:00 Test Item Value Reference Range Interpretation Comments NT-proBNP (test code 82 pg/mL See_Comment [Autom ated = 3192216168) message] The system which generated this result transmitted reference range : <=125. The reference range was not used to interpret this result as normal/abnormal . ESTHELA (test code = ESTHELA) Biotin has been reported to cause a negative bias, interpret results relative to patient's use of biotin. Lab Interpretation Normal (test code = 25200-1) [facility] (NA, K, CL, CO2, GLUCOSE, BUN, CREATININE, CA)2020-06-22 21:28:00 Test Item Value Reference Range Interpretation Comments NA (test code = 138 mmol/L 135-145 2251875810) K (test code = 4.2 mmol/L 3.5-5 0574350007) CL (test code = 102 mmol/L 98-108 2486410143) CO2 TOTAL (test code = 28 mmol/L 23-31 4566426884) AGAP (test code = 2-16 5424827065) BUN (test code = 8 mg/dL 7-23 0971776966) GLUCOSE (test code = 92 mg/dL 70-110 0595303430) CREATININE (test code 0.86 mg/dL 0.6-1.25 = 3578272881) CALCIUM (test code = 9.2 mg/dL 8.6-10.6 5958747074) eGFR Calculation mL/min/1.73m2 (Non-) (test code = 4052368373) eGFR Calculation mL/min/1.73m2 () (test code = 8313993021) ESTHELA (test code = ESTHELA) Association of [...] or urine or abnormalities in imaging tests). [facility] (ALB, T.PRO, BILI T, BU/BC, ALT, AST, ALK PHOS)2020-06-22 21:28:00 Test Item Value Reference Range Interpretation Comments TOTAL BILI (test code = 2935089444) 0.7 mg/dL 0.1-1.1 BILI UNCON (test code = 6974342092) 0.6 mg/dL 0.1-1.1 BILI CONJ (test code = 3358806140) 0.0 mg/dL 0-0.3 T PROTEIN (test code = 8600265059) 7.8 g/dL 6.3-8.2 ALBUMIN (test code = 0006441694) 4.3 g/dL 3.5-5 ALK PHOS (test code = 0759424754) 59 U/L 34-122 ALTv (test code = 1742-6) 26 U/L 5-50 AST(SGOT) (test code = 7730237194) 33 U/L 13-40 Lab Interpretation (test code = Normal 36839-6) [facility]"
[2023-02-04 08:40] LABS: Hematocrit 52.6 % (39.6-49.0); Lymphocytes % 25.6 % (15.3-44.8); MCV 96.8 fL (80-100); MPV 8.4 fL (7.6-11.3); RBC Red Blood Cell Count 5.43 M/uL (4.33-5.43)
[2023-02-04 08:44] LABS: Protime INR 0.94
[2023-02-04 08:56] LABS: ALT/SGPT 39 U/L (16-61); AST/SGOT 21 U/L (15-37); Albumin 3.9 g/dL (3.4-5.0); Alkaline Phosphatase 54 U/L (45-117); BUN Blood Urea Nitrogen 8 mg/dL (7-18); Bicarbonate 29 mEq/L (21-32); Bilirubin Direct 0.1 mg/dL (0-0.2); Bilirubin Total 0.6 mg/dL (0.2-1.0); Glomerular Filtration Rate 106 ml/min (=/>90); Glucose Level 105 mg/dL (74-106); Magnesium 1.7 mg/dL (1.6-2.4); NT PRO-BNP 12 pg/mL (<125); Potassium 3.6 mEq/L (3.5-5.1); Protein, Total 7.4 g/dL (6.4-8.2); Sodium Level 133 mEq/L (136-145); Troponin High Sensitivity 4.8 pg/mL (<58.9)
--- NOTE | 2023-02-04 08:57 | RAD REPORT ---
EXAM DESCRIPTION: CT - CTHCSPWOC - 02/04/2023 8:37 am CLINICAL HISTORY: SYNCOPE COMPARISON: Head C Spine Mpr Wo Con dated 08/21/2021 TECHNIQUE: Axial thin cut noncontrast CT images of the head were obtained. Axial thin cut noncontrast CT images of the cervical spine were obtained. Multiplanar reformatted images were generated and reviewed. All CT scans are performed using dose optimization technique as appropriate and may include automated exposure control or mA/KV adjustment according to patient size. FINDINGS: CT HEAD WITHOUT CONTRAST: No acute hemorrhage, hydrocephalus or extra-axial collection is identified.No areas of brain edema or midline shift. The paranasal sinuses and mastoids are clear.The calvarium is intact. CT CERVICAL SPINE WITHOUT CONTRAST: No fracture or subluxation. Minimal endplate degenerative changes with straightening of the normal ce rvical lordosis. No significant bony canal or foraminal stenosis. No prevertebral soft tissues swelli ng is identified. IMPRESSION: No acute traumatic intracranial or cervical spine findings. Straightening of normal cervical lordosis, which could be positional or secondary to muscle spasm.
--- NOTE | 2023-02-04 09:22 | RAD REPORT ---
EXAM DESCRIPTION: Arti Single View02/04/2023 8:43 am CLINICAL HISTORY: syncope COMPARISON: <Comparisons> TECHNIQUE: Portable AP view of the chest. FINDINGS: The lungs are clear. No pneumothorax or effusion. The cardiomediastinal contours are unrem arkable. IMPRESSION: No acute cardiopulmonary process.
[2023-02-04 09:46] LABS: Specific Gravity 1.009 (1.005-1.030); Urine Bilirubin NEGATIVE (Negative); Urine Blood Negative (Negative); Urine Clarity Clear (Clear); Urine Color Light-Yellow (Yellow); Urine Glucose NEGATIVE (Negative); Urine Protein NEGATIVE (Negative); Urine Urobilinogen Normal (Normal)
[2023-02-04 09:55] LABS: Barbiturates NEGATIVE (NEGATIVE); Benzodiazepines NEGATIVE (NEGATIVE); Cocaine NEGATIVE (NEGATIVE); METHAMPHETAM NEGATIVE (NEGATIVE); Methadone NEGATIVE (NEGATIVE); Opiates NEGATIVE (NEGATIVE); Phencyclidine NEGATIVE (NEGATIVE); THC Cannibis NEGATIVE (NEGATIVE)
--- NOTE | 2023-02-04 11:01 | ER ---
Nurse's Notes [facility] Name: Jerome Lora Age: 47 yrs Sex: Male : 1975 Arrival Date: 02/04/2023 Time: 08:18 Bed 7 Private MD: Diagnosis: Syncope Near Presentation: 02/04 08:20 Chief complaint: EMS states: WITNESSED SYNCOPAL EPISODE, NO TRAUMA OR PRECIPITATING bp EVENT. Coronavirus screen: At this time, the client does not indicate any symptoms associated with coronavirus-19. Ebola Screen: No symptoms or risks identified at this time. Initial Sepsis Screen: Does the patient meet any 2 criteria? No. Patient's initial sepsis screen is negative. Does the patient have a suspected source of infection? No. Patient's initial sepsis screen is negative. Risk Assessment: Do you want to hurt yourself or someone else? Patient reports no desire to harm self or others. Onset of symptoms was February 04, 2023 at 08:00. 08:20 Method Of Arrival: EMS: [facility] bp 08:20 Acuity: KIMBERLEY 3 bp Triage Assessment: 08:21 General: Appears in no apparent distress. comfortable, Behavior is calm, cooperative, bp appropriate for age. Pain: Complains of pain in head. EENT: No deficits noted. Neuro: Reports a syncopal episode. Cardiovascular: Rhythm is sinus rhythm. Respiratory: No deficits noted. GI: No signs and/or symptoms were reported involving the gastrointestinal system. : No signs and/or symptoms were reported regarding the genitourinary system. Derm: No deficits noted. Musculoskeletal: No deficits noted. Historical: - Home Meds: 08:21 losartan 100 mg Oral tab 1 tab once daily [Active]; atorvastatin 40 mg oral tablet 1 bp tab every day at bedtime [Active]; - PMHx: 08:21 CVA; Hyperlipidemia; Hypertensive disorder; bp - PSHx: 08:21 Shoulder; bp - Immunization history:: Adult Immunizations. - Social history:: Smoking status: Patient denies any tobacco usage or history of. Screenin:23 [facility] ED Fall Risk Assessment (Adult) History of falling in the last 3 months, bp including since admission Yes- physiologic fall (2 pts). Abuse screen: Denies threats or abuse. Denies injuries from another. Nutritional screening: No deficits noted. Tuberculosis screening: No symptoms or risk factors identified. Assessment: 08:23 General: SEE TRIAGE NOTE. bp 09:15 Reassessment: Patient appears in no apparent distress at this time. Patient and/or hb family updated on plan of care and expected duration. Pain level reassessed. Patient is alert, oriented x 3, equal unlabored respirations, skin warm/dry/pink. 10:12 Reassessment: Patient appears in no apparent distress at this time. Patient and/or hb family updated on plan of care and expected duration. Pain level reassessed. Patient is alert, oriented x 3, equal unlabored respirations, skin warm/dry/pink. 11:31 Reassessment: PT DC HOME AMBULATORY. bp Vital Signs: 08:20 BP 144 / 88; Pulse 80; Weight 108.86 kg; Height 5 ft. 11 in. ; bp 09:15 BP 139 / 90; Pulse 78; Resp 16; Pulse Ox 99% on R/A; hb 09:47 BP 129 / 75 Supine; Pulse 70; Resp 15; Pulse Ox 98% on R/A; tm3 09:47 BP 144 / 93 Sitting; Pulse 70; Resp 16; Pulse Ox 98% on R/A; tm3 09:47 BP 135 / 95 Standing; Pulse 77; Resp 16; Pulse Ox 96% on R/A; tm3 10:11 BP 137 / 87; Pulse 67; Resp 16; Pulse Ox 98% on R/A; hb 11:31 BP 143 / 94; Pulse 72; Resp 14; Pulse Ox 97% ; bp 08:20 Body Mass Index 33.47 (108.86 kg, 180.34 cm) bp ED Course: 08:19 Patient arrived in ED. bp 08:21 Triage completed. bp 08:21 Arm band placed on. bp 08:23 Anna Dowd FNP-C is PHCP. snw 08:23 Dave Bhardwaj MD is Attending Physician. snw 08:23 Patient has correct armband on for positive identification. Bed in low position. Call bp light in reach. Side rails up X2. 08:24 Nj Nixon, JOANN is Primary Nurse. bp 08:30 Inserted saline lock: 20 gauge in right antecubital area, using aseptic technique. hb Blood collected. 08:32 EKG done, by ED staff. tm3 08:38 CT Head C Spine In Process Unspecified. EDMS 08:44 XRAY Chest (1 view) In Process Unspecified. EDMS 09:47 Urine collected: clean catch specimen, clear. tm3 11:31 No provider procedures requiring assistance completed. IV discontinued, intact, bp bleeding controlled, No redness/swelling at site. Pressure dressing applied. Administered Medications: No medications were administered Medication: 08:23 VIS not applicable for this client. bp Point of Care Testing: Blood Glucose: 08:21 Blood Glucose: 97 mg/dL; bp Ranges: Outcome: 11:00 Discharge ordered by MD. miller 11:31 Discharged to home ambulatory. bp 11:31 Condition: stable 11:31 Discharge instructions given to patient, Instructed on discharge instructions, follow up and referral plans. Demonstrated understanding of instructions, follow-up care. 11:32 Patient left the ED. bp Signatures: Dispatcher [employer] EDMS Michael Mancuso tm3 Anna Dowd, MANAGING BROKER-C MANAGING BROKER-Csnw Eveline Grimm, RN RN Nj Nixon, RN RN bp
--- NOTE | 2023-02-04 11:01 | EDPHYS ---
Physician Documentation [facility] Name: Jerome Lora Age: 47 yrs Sex: Male : 1975 Arrival Date: 02/04/2023 Time: 08:18 Bed 7 Private MD: ED Physician Dave Bhardwaj HPI: 02/04 08:26 This 47 yrs old Male presents to ER via EMS with complaints of Syncope. snw 08:26 The patient has experienced syncope, collapsed. Onset: The symptoms/episode snw began/occurred suddenly, just prior to arrival. Duration: This was a single episode, that lasted 30 second(s). Context: the episode(s) was witnessed, by co-worker(s), occurred at work, occurred while the patient was walking, Just prior to the episode the patient experienced no apparent symptoms. Associated injury: The patient did not suffer any apparent associated injury. Associated signs and symptoms: Pertinent positives: mild headache. Current symptoms: mild headache. The patient has experienced a previous episode. The patient has not recently seen a physician. takes one baby asa daily. 08:34 no incontinence, no post-ictal s/s. snw Historical: - Home Meds: 08:21 losartan 100 mg Oral tab 1 tab once daily [Active]; atorvastatin 40 mg oral tablet 1 bp tab every day at bedtime [Active]; - PMHx: 08:21 CVA; Hyperlipidemia; Hypertensive disorder; bp - PSHx: 08:21 Shoulder; bp - Immunization history:: Adult Immunizations. - Social history:: Smoking status: Patient denies any tobacco usage or history of. ROS: 08:26 Constitutional: Negative for fever, chills, and weight loss, Eyes: Negative for injury, snw pain, redness, and discharge, ENT: Negative for injury, pain, and discharge, Neck: Negative for injury, pain, and swelling, Cardiovascular: Negative for chest pain, palpitations, and edema, Respiratory: Negative for shortness of breath, cough, wheezing, and pleuritic chest pain, Abdomen/GI: Negative for abdominal pain, nausea, vomiting, diarrhea, and constipation, Back: Negative for injury and pain, : Negative for injury, bleeding, discharge, and swelling, MS/Extremity: Negative for injury and deformity, Skin: Negative for injury, rash, and discoloration, Psych: Negative for depression, anxiety, suicide ideation, homicidal ideation, and hallucinations. 08:26 Neuro: Positive for syncope. Exam: 08:24 Constitutional: This is a well developed, well nourished patient who is awake, alert, snw and in no acute distress. Head/Face: Normocephalic, atraumatic. Eyes: Pupils equal round and reactive to light, extra-ocular motions intact. Lids and lashes normal. Conjunctiva and sclera are non-icteric and not injected. Cornea within normal limits. Periorbital areas with no swelling, redness, or edema. ENT: Nares patent. No nasal discharge, no septal abnormalities noted. Tympanic membranes are normal and external auditory canals are clear. Oropharynx with no redness, swelling, or masses, exudates, or evidence of obstruction, uvula midline. Mucous membranes moist. Neck: Trachea midline, no thyromegaly or masses palpated, and no cervical lymphadenopathy. Supple, full range of motion without nuchal rigidity, or vertebral point tenderness. No Meningismus. Chest/axilla: Normal chest wall appearance and motion. Nontender with no deformity. No lesions are appreciated. Cardiovascular: Regular rate and rhythm with a normal S1 and S2. No gallops, murmurs, or rubs. Normal PMI, no JVD. No pulse deficits. Respiratory: Lungs have equal breath sounds bilaterally, clear to auscultation and percussion. No rales, rhonchi or wheezes noted. No increased work of breathing, no retractions or nasal flaring. Abdomen/GI: Soft, non-tender, with normal bowel sounds. No distension or tympany. No guarding or rebound. No evidence of tenderness throughout. Back: No spinal tenderness. No costovertebral tenderness. Full range of motion. Skin: Warm, dry with normal turgor. Normal color with no rashes, no lesions, and no evidence of cellulitis. MS/ Extremity: Pulses equal, no cyanosis. Neurovascular intact. Full, normal range of motion. Neuro: Awake and alert, GCS 15, oriented to person, place, time, and situation. Cranial nerves II-XII grossly intact. Motor strength 5/5 in all extremities. Sensory grossly intact. Cerebellar exam normal. Normal gait. Psych: Awake, alert, with orientation to person, place and time. Behavior, mood, and affect are within normal limits. Vital Signs: 08:20 BP 144 / 88; Pulse 80; Weight 108.86 kg; Height 5 ft. 11 in. ; bp 09:15 BP 139 / 90; Pulse 78; Resp 16; Pulse Ox 99% on R/A; hb 09:47 BP 129 / 75 Supine; Pulse 70; Resp 15; Pulse Ox 98% on R/A; tm3 09:47 BP 144 / 93 Sitting; Pulse 70; Resp 16; Pulse Ox 98% on R/A; tm3 09:47 BP 135 / 95 Standing; Pulse 77; Resp 16; Pulse Ox 96% on R/A; tm3 10:11 BP 137 / 87; Pulse 67; Resp 16; Pulse Ox 98% on R/A; hb 11:31 BP 143 / 94; Pulse 72; Resp 14; Pulse Ox 97% ; bp 08:20 Body Mass Index 33.47 (108.86 kg, 180.34 cm) bp MDM: 08:23 Patient medically screened. snw 11:01 Differential Diagnosis: cardiac arrhythmia, drug effect, emotional response, seizure, snw transient ischemic attack, vasovagal episode. Data reviewed: vital signs, nurses notes, lab test result(s), EKG, radiologic studies. Historians other than the Patient: EMS: [facility]. Counseling: I had a detailed discussion with the patient and/or guardian regarding: the historical points, exam findings, and any diagnostic results supporting the discharge/admit diagnosis, the presence of at least one elevated blood pressure reading (>120/80) during this emergency department visit, lab results, radiology results, the need for outpatient follow up, for definitive care, to return to the emergency department if symptoms worsen or persist or if there are any questions or concerns that arise at home. Response to treatment: There is no appreciated change of the patient's symptoms at this time. Special discussion: I have referred the patient to see his PCP for further evaluation of high blood pressure. Based on the history and exam findings, there is no indication for further emergent testing or inpatient evaluation. I discussed with the patient/guardian the need to see the audit mgr for further evaluation of the symptoms. I discussed with the patient/guardian the need to see the primary care provider for further evaluation of the symptoms. 02/04 08:24 Order name: Acetaminophen; Complete Time: :05 snw 02/04 08:24 Order name: Basic Metabolic Panel; Complete Time: 09:05 snw 02/04 08:24 Order name: CBC with Diff; Complete Time: 08:54 snw 02/04 08:24 Order name: ETOH Level; Complete Time: 08:54 snw 02/04 08:24 Order name: Hepatic Function; Complete Time: 09:05 snw 02/04 08:24 Order name: PT-INR; Complete Time: 08:54 snw 02/04 08:24 Order name: Ptt, Activated; Complete Time: 08:54 snw 02/04 08:24 Order name: Salicylate; Complete Time: 09:05 snw 02/04 08:24 Order name: Urinalysis w/ reflexes; Complete Time: 09:53 snw 02/04 08:24 Order name: Urine Drug Screen; Complete Time: 10:09 snw 02/04 08:24 Order name: Magnesium; Complete Time: 09:05 snw 02/04 08:24 Order name: NT PRO-BNP; Complete Time: 09:05 snw 02/04 08:24 Order name: Troponin HS; Complete Time: 09:05 snw 02/04 10:19 Order name: Add On-Lab w 02/04 10:27 Order name: Iron; Complete Time: 11:00 EDMS 02/04 08:24 Order name: XRAY Chest (1 view); Complete Time: 09:26 snw 02/04 08:24 Order name: CT Head C Spine; Complete Time: 09:05 snw 02/04 08:24 Order name: EKG; Complete Time: 08:25 snw 02/04 08:24 Order name: EKG - Nurse/Tech; Complete Time: 08:26 snw 02/04 08:24 Order name: IV Saline Lock; Complete Time: 08:36 snw 02/04 08:24 Order name: Labs collected and sent; Complete Time: 08:36 snw 02/04 08:24 Order name: Suicide Screening ([place]); Complete Time: 08:26 snw 02/04 08:24 Order name: Cardiac monitoring; Complete Time: 08:25 snw 02/04 08:24 Order name: O2 Per Protocol; Complete Time: 08:25 snw 02/04 08:24 Order name: O2 Sat Monitoring; Complete Time: 08:25 snw 02/04 09:32 Order name: Orthostatics; Complete Time: 10:11 snw EC:30 Rate is 75 beats/min. Rhythm is regular. QRS [place] is Normal. IA interval is normal. QRS snw interval is normal. QT interval is normal. Clinical impression: NSR w/ Non-specific ST/T Changes. Administered Medications: No medications were administered Point of Care Testing: Blood Glucose: 08:21 Blood Glucose: 97 mg/dL; bp Ranges: Critical Glucose Levels:Adult <50 mg/dl or >400 mg/dl <40 mg/dl or >180 mg/dl Disposition Summary: 02/04/23 11:00 Discharge Ordered Location: Home snw Condition: Stable snw Diagnosis - Syncope Near snw Followup: snw - With: Emergency Department - When: As needed - Reason: Worsening of condition Followup: snw - With: Private Physician - When: 2 - 3 days - Reason: Recheck today's complaints, Continuance of care, Re-evaluation by your physician Discharge Instructions: - Discharge Summary Sheet snw - Syncope snw - Aspirin and Your Heart snw Forms: - Work release form snw - Medication Reconciliation Form snw - Thank You Letter snw - Antibiotic Education snw - Prescription Opioid Use snw Signatures: Dispatcher [employer] EDAnna Schroeder, DANIELLE-C DRUG ABUSE WORKER-Nj Moss, RN RN bp
[2023-02-04 12:01] VITALS: BP 143/94; O2SAT 97
== END 2023-02-04 11:32 | disposition home or self-care (01) ==
LOC: ER 08:18
DX: R55 Syncope and collapse (principal); R51.9 Headache, unspecified; I10 Essential (primary) hypertension; E78.5 Hyperlipidemia, unspecified; Z86.73 Personal history of transient ischemic attack (TIA), and cerebral infarction without residual deficits
CPT/HCPCS: 85025; 80048; 36415; 83735; 85610; 80076; 85730; 81003; 84484; 83540; 83880; 80307; 70450; 72125; 71045; 99284; G0480 ×3